=== PATIENT | female | born 1935 | race Caucasian/White ===

== ENCOUNTER 2022-08-17 17:02 | Emergency (ER) | payer MEDICARE, SELFPAY ==
[2022-08-17 17:12] VITALS: BP 172/79; PULSE 85; RESP 16; TEMP 37; O2SAT 96; BMI 28.4
--- NOTE | 2022-08-17 17:29 | ECG_ITS ---
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
--- NOTE | 2022-08-17 17:30 | XR_ITS ---
The [address] [address] Patient Name: DOMINIC HARRIS MRN: [id number] date: 1935 Sex: F Assigned Patient Location: ER Current Patient Location: ED.MAIN Accession/Order Number: [id number] Exam Date: 08/17/2022 18:00 Report Date: 08/17/2022 18:59 At the request of: ARNAV AGUILAR Procedure: XR chest 2V EXAM: XR chest 2V HISTORY: bilateral leg swelling COMPARISON: None. TECHNIQUE: PA and lateral views FINDINGS: The heart is within normal in size. Atherosclerotic aorta without visible aneurysm. The lung galvan are well-expanded and clear. There is a right convexity scoliotic curve of the lower thoracic spine. Bony structures are otherwise unremarkable. IMPRESSION: Chronic changes. No acute cardiopulmonary process is otherwise identified. Electronically authenticated by: Christine MCDONNELL Date: 08/17/2022 18:59
--- NOTE | 2022-08-17 17:31 | ED_ITS ---
HPI - General Adult General Stated complaint: BILATERAL EDEMA Time Seen by Provider: 08/17/22 17:08 Source: patient and family Mode of arrival: Wheelchair Limitations: no limitations History of Present Illness HPI narrative: both legs are swollen Patient said that she only takes her Lasix as needed . She noticed that both of her legs became more swollen last week. She and her family told me that it was really bad on Wednesday - 08/15/22. She started taking her Lasix once daily instead of twice a week. Her leg swelling has decreased since taking the Lasix daily. No shortness of breath or chest pain. No other complaints. She denied having pain behind the knees or in the calves. Her PCP is Dr Bailey Related Data Allergies Allergy/AdvReac Type Severity Reaction Status Date / Time Penicillins AdvReac Verified 08/17/22 17:12 PFSH PFS Social History Smoking status: Never smoker Exam Narrative Exam Narrative: Nurses notes and vital signs reviewed and patient is not hypoxic. afebrile General: Well-appearing and in no apparent distress. Skin: Warm, dry, no pallor noted. No rash. Head: Normocephalic, atraumatic. Eye: Pupils are equal, round and EOMI. No scleral icterus. Ears, Nose, Mouth, and Throat: Oral mucosa is moist Cardiovascular: Regular Rate and Rhythm without murmur, gallop or rub. Respiratory: No accessory muscle use or respiratory distress. Lungs are clear to auscultation, no wheezing, rales or rhonchi Musculoskeletal: normal ROM, no calf or popliteal tenderness. Bilateral 1+ pitting lower extremity edema/swelling GI: Abdomen is soft, non-distended. Normal bowel sounds. No tenderness to palpation. No rebound, guarding, or rigidity noted. Neurological: A&O x4. No cranial nerve dysfunction observed. No truncal ataxia. Moves all extremities. Sensation intact. Psychiatric: Cooperative and interactive. Normal mood and affect. Constitutional Vital Signs - 24 hr 08/17/22 17:12 Temperature 98.6 F Pulse Rate [Monitor] 85 Respiratory Rate 16 Blood Pressure [Left Arm] 172/79 H Pulse Oximetry 96 Course Vital Signs Vital signs: Vital Signs Temperature 98.6 F 08/17/22 17:12 Pulse Rate 85 08/17/22 17:12 Respiratory Rate 16 08/17/22 17:12 Blood Pressure 172/79 H 08/17/22 17:12 Pulse Oximetry 96 08/17/22 17:12 Temperature 98.6 F 08/17/22 17:12 Pulse Rate 85 08/17/22 17:12 Respiratory Rate 16 08/17/22 17:12 Blood Pressure 172/79 H 08/17/22 17:12 Pulse Oximetry 96 08/17/22 17:12 Medical Decision Making MDM Narrative Medical decision making narrative: Patient was placed on phototypesetting equipment monitor and EKG obtained. Blood drawn and sent for evaluation. BNP and troponin normal. BUN and Cr slightly elevated. Unremarkable CBC. I do not have recent values for her BUn/Cr. Patient was improving after taking Lasix daily. She will be discharged home with instructions to continue to take her Lasix daily for a few more days and then see her PCP for follow up. Discussed keeping legs elevated while inactive. ED return if she worsens. Lab Data Lab results reviewed: Yes I reviewed the patient's lab results Labs: Lab Results 08/17/22 Range/Units 17:25 WBC 9.1 (4.0-11.0) 10^3/uL RBC 3.79 L (4.20-5.40) 10^6/uL Hgb 11.3 L (12.0-16.0) g/dL Hct 35.0 L (36.0-48.0) % MCV 92.3 (81.0-99.0) fL MCH 29.8 (26.7-34.0) pg MCHC 32.3 (29.9-35.2) g/dL RDW 15.0 (11.0-15.0) % Plt Count 210 (150-450) 10^3/uL MPV 9.8 (9.5-13.5) fL Neut % (Auto) 84.4 H (43.0-75.0) % Lymph % (Auto) 9.6 L (20.5-60.0) % [place] % (Auto) 4.4 (1.7-12.0) % Eos % (Auto) 0.2 L (0.9-7.0) % Baso % (Auto) 0.3 (0.2-2.0) % Neut # (Auto) 7.7 H (1.4-6.5) 10^3/uL Lymph # (Auto) 0.9 L (1.2-3.8) 10^3/uL [place] # (Auto) 0.4 (0.3-0.8) 10^3/uL Eos # (Auto) 0.0 (0.0-0.7) 10^3/uL Baso # (Auto) 0.0 (0.0-0.1) 10^3/uL Abs Immat Gran (auto) 0.10 H (0.00-0.03) 10^3/uL Imm/Tot Granulo (auto) 1.1 H (0.0-0.5) % Sodium 143 (136-145) mmol/L Potassium 4.1 (3.5-5.1) mmol/L Chloride 105 (98-107) mmol/L Carbon Dioxide 28.4 (21.0-32.0) mmol/L Anion Gap 13.7 BUN 47.0 H (7.0-18.0) mg/dL Creatinine 1.76 H (0.55-1.02) mg/dL Est GFR ( Amer) 33 L (>=60) Est GFR (Non-Af Amer) 27 L (>=60) BUN/Creatinine Ratio 26.7 Glucose 158 H (74-106) mg/dL Calcium 9.7 (8.5-10.1) mg/dL Total Bilirubin 0.3 (0.2-1.0) mg/dL AST 25 (15-37) U/L ALT 54 (14-59) U/L Alkaline Phosphatase 66 (46-116) U/L Troponin I High Sens 15.6 (4.0-51.3) pg/mL NT-Pro-B Natriuret Pep 267.0 (<=1800.0) pg/mL Total Protein 7.0 (6.4-8.2) g/dL Albumin 3.6 (3.4-5.0) g/dL Globulin 3.4 g/dL Albumin/Globulin Ratio 1.1 ECG Data Attestation: ?I have reviewed the pertinent ECG results. Interpretation: EKG interpretation: Emergency Department physician interpretation. Normal sinus rhythm at 77bpm. Normal axis, normal intervals and no ST segment elevation or depression. Normal EKG. Discharge Plan Discharge Clinical Impression: Renal disease, Edema, peripheral Patient Disposition: Home, Self-Care Time of Disposition Decision: 18:50 Instructions: Edema (ED) Stand Alone Forms: Portal Instructions Referrals: DIPTI BAILEY [Primary Care Provider] - 1 week
[2022-08-17 18:04] LABS: Basophils Percent Auto 0.3 % (0.2-2.0); Eosinophils Percent Auto 0.2 % (0.9-7.0); Hemoglobin 11.3 g/dL (12.0-16.0); Immature Granulocytes Pct Auto 1.1 % (0.0-0.5); Lymphocytes Absolute Auto 0.9 10^3/uL (1.2-3.8); Lymphocytes Percent Auto 9.6 % (20.5-60.0); Mean Corpuscular HGB Conc 32.3 g/dL (29.9-35.2); Mean Corpuscular Hemoglobin 29.8 pg (26.7-34.0); Mean Corpuscular Volume 92.3 fL (81.0-99.0); Mean Platelet Volume 9.8 fL (9.5-13.5); Monocytes Absolute Auto 0.4 10^3/uL (0.3-0.8); Monocytes Percent Auto 4.4 % (1.7-12.0); Neutrophils Absolute Auto 7.7 10^3/uL (1.4-6.5); Neutrophils Percent Auto 84.4 % (43.0-75.0); Platelet Count 210 10^3/uL (150-450); Red Blood Count 3.79 10^6/uL (4.20-5.40); White Blood Count 9.1 10^3/uL (4.0-11.0)
[2022-08-17 18:22] LABS: Alanine Aminotransferase 54 U/L (14-59); Albumin Globulin Ratio 1.1; Albumin Level 3.6 g/dL (3.4-5.0); Alkaline Phosphatase 66 U/L (46-116); Anion Gap 13.7; Aspartate Amino Transferase 25 U/L (15-37); BUN Creatinine Ratio 26.7; Bilirubin Total 0.3 mg/dL (0.2-1.0); Calcium 9.7 mg/dL (8.5-10.1); Carbon Dioxide 28.4 mmol/L (21.0-32.0); Chloride 105 mmol/L (98-107); Estimated GFR (African America 33 (>=60); Estimated GFR (Non-African Ame 27 (>=60); Globulin 3.4 g/dL; Glucose 158 mg/dL (74-106); Potassium 4.1 mmol/L (3.5-5.1); Sodium 143 mmol/L (136-145); Troponin I High Sensitivity 15.6 pg/mL (4.0-51.3)
== END 2022-08-17 19:26 | disposition home or self-care (01) ==
PROVIDERS: Emergency Provider Emergency Medicine; PCP Internal Medicine
DX: R60.9 Edema, unspecified (principal); N28.9 Disorder of kidney and ureter, unspecified; Z79.899 Other long term (current) drug therapy
CPT/HCPCS: 36415; 71046; 80053; 83880; 84484; 85025; 93005; 99285

== ENCOUNTER 2023-12-02 10:24 | Observation (INO) | payer MEDICARE, SELFPAY ==
[2023-12-02] VITALS (26 sets, daily range): BP systolic 122–140; BP diastolic 71–97; PULSE 108–138; TEMP 36.5–36.6; O2SAT 90–100; BMI 28.5; BMI 29.8
--- NOTE | 2023-12-02 10:43 | ECG_ITS ---
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
--- NOTE | 2023-12-02 10:44 | ED_ITS ---
HPI HPI - General Adult General Chief complaint: Shortness of Breath/Dyspnea Stated complaint: HIGH HEART RATE, CLINIC REFERRAL Time Seen by Provider: 12/02/23 10:32 History of Present Illness HPI narrative: 88-year-old female presents for fast heart rate. She does not have the sense that her heart rate is fast. She was supposed to have an outpatient echo today but her heart rate was noted to be fast so she was sent here. She does not have chest pain or palpitations or dizziness. She is no more short of breath than typical. She states when she checks her blood pressure at home she gets a reading on her heart rate and it has been in the 140 range for about 6 months. Related Data Home Medications ?Medication ?Instructions ?Recorded ?Confirmed allopurinol 300 mg tablet 300 mg PO DAILY 12/02/23 12/02/23 amlodipine 5 mg tablet 5 mg PO DAILY 12/02/23 12/02/23 aspirin 81 mg chewable tablet 1 tab PO DAILY 12/02/23 12/02/23 furosemide 20 mg tablet 20 mg PO DAILY 12/02/23 12/02/23 latanoprost 0.005 % eye drops 1 drp ophthalmic (eye) BID 12/02/23 12/02/23 lisinopril 20 mg tablet 20 mg PO DAILY 12/02/23 12/02/23 prednisone 2.5 mg tablet 2.5 mg PO DAILY 12/02/23 12/02/23 Allergies Allergy/AdvReac Type Severity Reaction Status Date / Time Penicillins AdvReac Hives Verified 12/02/23 10:45 Opioid HPI Opioid Management Most Recent Opioid Data: Last Pain Scale 0 12/02/23 10:46 Last ED Pain Assessment 12/02/23 10:46 PFSH PFSH Medical History (Updated 12/02/23 @ 11:51 by Harjeet Thakkar MD) Hx of chronic kidney disease ?Z87.448 - Personal history of other diseases of urinary system (ICD-10) Hypertension ?I10 - Essential (primary) hypertension (ICD-10) Diabetes mellitus ?E11.9 - Type 2 diabetes mellitus without complications (ICD-10) Social History Smoking status: Never smoker Little interest or pleasure in doing things: not at all Feeling down, depressed, or hopeless: not at all Exam Constitutional Vital Signs, click to edit/add: Last Vital Signs Temp 97.8 F 12/02/23 11:00 Pulse 137 H 12/02/23 10:40 Resp 20 12/02/23 10:40 BP 131/97 H 12/02/23 10:40 Pulse Ox 99 12/02/23 10:46 O2 Del Method Nasal Cannula 12/02/23 10:46 Course Vital Signs Vital signs: Vital Signs Pulse Rate 137 H 12/02/23 10:40 Respiratory Rate 20 12/02/23 10:40 Blood Pressure 131/97 H 12/02/23 10:40 Pulse Oximetry 99 12/02/23 10:40 Oxygen Delivery Method Room Air 12/02/23 10:40 Temperature 97.8 F 12/02/23 11:00 Pulse Rate 137 H 12/02/23 10:40 Respiratory Rate 20 12/02/23 10:40 Blood Pressure 131/97 H 12/02/23 10:40 Pulse Oximetry 99 12/02/23 10:46 Oxygen Delivery Method Nasal Cannula 12/02/23 10:46 Medical Decision Making MDM Narrative Medical decision making narrative: The patient is found to have an elevated heart rate. My clinical impression is that this is sinus tachycardia. I do not believe that it is atrial flutter or atrial fibrillation. Lab work indicates some renal insufficiency which appears to be somewhat chronic. D-dimer is also elevated but her GFR is only 21 so we are unable to do CTA to rule out PE. She may require VQ scan. She is being admitted for further workup. Differential Diagnosis Differential Diagnosis: Sinus tachycardia, atrial fibrillation, atrial flutter, dehydration, anemia Lab Data Lab results reviewed: Yes I reviewed the patient's lab results Labs: Lab Results 12/02/23 Range/Units 10:35 WBC 9.9 (4.0-11.0) 10^3/uL RBC 3.81 L (4.20-5.40) 10^6/uL Hgb 11.1 L (12.0-16.0) g/dL Hct 34.6 L (36.0-48.0) % MCV 90.8 (81.0-99.0) fL MCH 29.1 (26.7-34.0) pg MCHC 32.1 (29.9-35.2) g/dL RDW 14.7 (11.0-15.0) % Plt Count 256 (150-450) 10^3/uL MPV 10.0 (9.5-13.5) fL Neut % (Auto) 78.7 H (43.0-75.0) % Lymph % (Auto) 11.6 L (20.5-60.0) % [place] % (Auto) 7.1 (1.7-12.0) % Eos % (Auto) 1.5 (0.9-7.0) % Baso % (Auto) 0.7 (0.2-2.0) % Neut # (Auto) 7.8 H (1.4-6.5) 10^3/uL Lymph # (Auto) 1.2 (1.2-3.8) 10^3/uL [place] # (Auto) 0.7 (0.3-0.8) 10^3/uL Eos # (Auto) 0.2 (0.0-0.7) 10^3/uL Baso # (Auto) 0.1 (0.0-0.1) 10^3/uL Abs Immat Gran (auto) 0.04 H (0.00-0.03) 10^3/uL Imm/Tot Granulo (auto) 0.4 (0.0-0.5) % D-Dimer 2.21 H* (<=0.59) mg/L FEU Sodium 136 (136-145) mmol/L Potassium 3.5 (3.5-5.1) mmol/L Chloride 100 (98-107) mmol/L Carbon Dioxide 24.0 (21.0-32.0) mmol/L Anion Gap 15.5 BUN 47.0 H (7.0-18.0) mg/dL Creatinine 2.24 H (0.55-1.02) mg/dL Est GFR ( Amer) 25 L (>=60 mL/min/1.73m^2) Est GFR (Non-Af Amer) 21 L (>=60 mL/min/1.73m^2) BUN/Creatinine Ratio 21.0 Glucose 214 H (74-106) mg/dL Calcium 10.2 H (8.5-10.1) mg/dL Troponin I High Sens 22.9 (4.0-51.3) pg/mL Imaging Data Chest x-ray: Radiologist's impression: ITS Impressions Chest X-Ray 12/02/23 11:15 IMPRESSION: No acute cardiopulmonary process Electronically authenticated by: GLORIA VIRGEN Date: 12/02/2023 11:33 ECG Data Attestation: I personally reviewed and interpreted this ECG as follows: (EKG on my interpretation shows sinus tachycardia with a rate of 136) Discharge Plan Discharge Chief Complaint: Shortness of Breath/Dyspnea Clinical Impression: Sinus tachycardia Patient Disposition: Admitted as Observation Time of Disposition Decision: 11:51 Condition: Good
[2023-12-02 10:51] LABS: Basophils Absolute Auto 0.1 10^3/uL (0.0-0.1); Basophils Percent Auto 0.7 % (0.2-2.0); Eosinophils Absolute Auto 0.2 10^3/uL (0.0-0.7); Eosinophils Percent Auto 1.5 % (0.9-7.0); Hematocrit 34.6 % (36.0-48.0); Hemoglobin 11.1 g/dL (12.0-16.0); Immature Granulocytes Abs Auto 0.04 10^3/uL (0.00-0.03); Immature Granulocytes Pct Auto 0.4 % (0.0-0.5); Lymphocytes Absolute Auto 1.2 10^3/uL (1.2-3.8); Lymphocytes Percent Auto 11.6 % (20.5-60.0); Mean Corpuscular HGB Conc 32.1 g/dL (29.9-35.2); Mean Corpuscular Hemoglobin 29.1 pg (26.7-34.0); Mean Corpuscular Volume 90.8 fL (81.0-99.0); Monocytes Absolute Auto 0.7 10^3/uL (0.3-0.8); Monocytes Percent Auto 7.1 % (1.7-12.0); Neutrophils Absolute Auto 7.8 10^3/uL (1.4-6.5); Neutrophils Percent Auto 78.7 % (43.0-75.0); Platelet Count 256 10^3/uL (150-450); Red Blood Count 3.81 10^6/uL (4.20-5.40); Red Cell Distribution Width 14.7 % (11.0-15.0); White Blood Count 9.9 10^3/uL (4.0-11.0)
[2023-12-02 11:08] LABS: Anion Gap 15.5; Calcium 10.2 mg/dL (8.5-10.1); Chloride 100 mmol/L (98-107); Estimated GFR (African America 25 (>=60 mL/min/1.73m^2); Estimated GFR (Non-African Ame 21 (>=60 mL/min/1.73m^2); Glucose 214 mg/dL (74-106); Potassium 3.5 mmol/L (3.5-5.1); Sodium 136 mmol/L (136-145); Troponin I High Sensitivity 22.9 pg/mL (4.0-51.3)
--- NOTE | 2023-12-02 11:15 | XR_ITS ---
The [address] [address] Patient Name: DOMINIC HARRIS MRN: [id number] date: 1935 Sex: F Assigned Patient Location: CARD Current Patient Location: ER Accession/Order Number: [id number] Exam Date: 12/02/2023 11:11 Report Date: 12/02/2023 11:33 At the request of: AVIS DOWLING Procedure: XR chest 1V EXAMINATION: XR chest 1V HISTORY: Tachycardia COMPARISON: 08/17/2022 TECHNIQUE: AP portable FINDINGS: LUNGS: No significant pulmonary parenchymal abnormalities. VASCULATURE: No increased pulmonary vasculature. PLEURA: No pneumothorax, effusion, or pleural thickening. CARDIAC: No cardiomegaly or cardiac silhouette abnormality. MEDIASTINUM: No visible mass or adenopathy. Atherosclerosis BONES: No fracture or visible bone lesion. Dextrocurvature OTHER: Negative. XR/XR chest 1V IMPRESSION: No acute cardiopulmonary process Electronically authenticated by: GLORIA VIRGEN Date: 12/02/2023 11:33
[2023-12-02 11:26] LABS: D Dimer 2.21 mg/L FEU (<=0.59)
--- NOTE | 2023-12-02 11:45 | NM_ITS ---
The [address] [address] Patient Name: DOMINIC HARRIS MRN: [id number] date: 1935 Sex: F Assigned Patient Location: MS Current Patient Location: MS Accession/Order Number: [id number] Exam Date: 12/02/2023 14:00 Report Date: 12/02/2023 15:57 At the request of: SHAIKH PATY Procedure: NM pul vent and perfuse EXAMINATION: NM pul vent and perfuse HISTORY: elevated d dimer, r/o PE COMPARISON: Plain x-ray 12/02/2023 TECHNIQUE: After obtaining the patient's consent, a ventilation/perfusion scan was obtained in the usual manner. 8 mCi technetium 99m macroaggregated albumin for the perfusion. 26.2 mCi technetium 99m DTPA inhaled aerosol FINDINGS: VENTILATION: Normal, no significant defects. PERFUSION: Normal, no significant defect. V/Q MISMATCH: None significant. NM/NM pul vent and perfuse IMPRESSION: Low probability for pulmonary embolus Electronically authenticated by: GLORIA VIRGEN Date: 12/02/2023 15:57
[2023-12-02 12:11] LABS: TSH W/ REFLEX FT4 5.105 uIU/mL (0.358-3.740)
--- NOTE | 2023-12-02 12:16 | PM.HP ---
HPI H&P: HPI History of Present Illness Chief complaint: HIGH HEART RATE, CLINIC REFERRAL Narrative: 88-year-old female was scheduled for outpatient echocardiogram and was sent to ER after she was noted to have heart rate in the 130s. Patient reports dyspnea on minimal exertion that is ongoing for about a month. She also has bilateral lower extremity edema that according to her is ongoing for 6 months. She denies cough, fever, orthopnea or paroxysmal nocturnal dyspnea. She denies prior history of congestive heart failure but was told that she had rheumatic fever as a child and that she has a heart murmur because of it. She does not recall ever having an echocardiogram but is unsure about it. Upon evaluation in ER, her heart rate is persistently in the 130 range. It appears to be sinus tachycardia. Patient told the ER provider that when she checks her blood pressure, she noticed that she had another number right besides her blood pressure that was always in the 130. It seems like this has been going on for a few months. Patient is currently comfortable at rest and is offering no complaints except for dyspnea on exertion and lower extremity edema. Opioid HPI Opioid Management Most Recent Pain and Opioid Data: Last Pain Scale 0 12/02/23 10:46 Last ED Pain Assessment 12/02/23 10:46 Review of Systems ROS Status of ROS 10 or more systems reviewed and unremarkable except as noted in history and below [facility] Medical History (Updated 12/02/23 @ 12:20 by Shaikh Alen MD) Type 2 diabetes mellitus ?E11.9 - Type 2 diabetes mellitus without complications (ICD-10) CKD stage 4 due to type 2 diabetes mellitus ?E11.22 - Type 2 diabetes mellitus with diabetic chronic kidney disease (ICD-10) ?N18.4 - Chronic kidney disease, stage 4 (severe) (ICD-10) Hx of chronic kidney disease ?Z87.448 - Personal history of other diseases of urinary system (ICD-10) Hypertension ?I10 - Essential (primary) hypertension (ICD-10) Diabetes mellitus ?E11.9 - Type 2 diabetes mellitus without complications (ICD-10) Social History Smoking status: Never smoker Little interest or pleasure in doing things: not at all Feeling down, depressed, or hopeless: not at all Meds Home Medications and Allergies Home Medications ?Medication ?Instructions ?Recorded ?Confirmed ?Type allopurinol 300 mg tablet 300 mg PO DAILY 12/02/23 12/02/23 History amlodipine 5 mg tablet 5 mg PO DAILY 12/02/23 12/02/23 History aspirin 81 mg chewable tablet 1 tab PO DAILY 12/02/23 12/02/23 History furosemide 20 mg tablet 20 mg PO DAILY 12/02/23 12/02/23 History latanoprost 0.005 % eye drops 1 drp ophthalmic (eye) BID 12/02/23 12/02/23 History lisinopril 20 mg tablet 20 mg PO DAILY 12/02/23 12/02/23 History metformin 1,000 mg tablet 1,000 mg PO .qd 12/02/23 12/02/23 History prednisone 2.5 mg tablet 2.5 mg PO DAILY 12/02/23 12/02/23 History Allergies Allergy/AdvReac Type Severity Reaction Status Date / Time Penicillins AdvReac Hives Verified 12/02/23 10:45 Exam Constitutional Vital Signs, click to edit/add: Last Vital Signs Temp 97.8 F 12/02/23 11:00 Pulse 137 H 12/02/23 10:40 Resp 20 12/02/23 10:40 BP 131/97 H 12/02/23 10:40 Pulse Ox 99 12/02/23 10:46 O2 Del Method Nasal Cannula 12/02/23 10:46 Documenting provider has reviewed patient's vital signs: yes Common normals: no apparent distress and oriented x3 General appearance: cooperative [facility] Common normals: normocephalic and head/scalp atraumatic Head and scalp: normocephalic and atraumatic Eye Common normals: conjunctivae normal and no scleral icterus Conjunctiva: conjunctiva(e) normal Respiratory Common normals: normal respiratory effort and clear to auscultation bilaterally Effort & inspection: able to speak in complete sentences Auscultation: clear to auscultation bilaterally and diminished lung sounds bilateral in the lower lung galvan Cardio Common normals: regular rhythm, S1 normal heart sound and S2 normal heart sound Rate: tachycardic Heart sounds: S1 normal and S2 normal GI Common normals: Normal to inspection, nondistended, normoactive bowel sounds present, soft to palpation, non-tender and no hepatosplenomegaly Palpation: soft and no hepatosplenomegaly Extremity Common normals: no clubbing, cyanosis or edema General: edema (+2 LE edema) Neuro Common normals: oriented x3, moves all extremities and no focal motor deficits Psych Common normals: mental status grossly normal, denies hallucinations, denies homicidal ideation and denies suicidal ideation Results Labs Labs: Short CBC 12/02/23 Range/Units 10:35 WBC 9.9 (4.0-11.0) 10^3/uL Hgb 11.1 L (12.0-16.0) g/dL Hct 34.6 L (36.0-48.0) % Plt Count 256 (150-450) 10^3/uL BMP 12/02/23 10:35 Sodium 136 Potassium 3.5 Chloride 100 Carbon Dioxide 24.0 BUN 47.0 H Creatinine 2.24 H Glucose 214 H Calcium 10.2 H Assessment and Plan Assessment and Plan (1) Acute on chronic diastolic (congestive) heart failure: Assessment and Plan: Suspected diastolic heart failure. Started patient on IV Lasix 40 twice daily. Monitor intake, output, daily weights. Echocardiogram ordered to assess cardiac structure. (2) Sinus tachycardia: Assessment and Plan: Check TSH. Echocardiogram ordered to assess cardiac structure. Appears to be sinus tachycardia. Added Lopressor 50 twice daily. Monitor on telemetry. (3) BRANHAM (dyspnea on exertion): Assessment and Plan: Chronic on exertion likely because of acute on chronic diastolic heart failure. Started on IV Lasix 40 twice daily. Echocardiogram pending. Elevated D-dimer-VQ scan ordered as unable to perform CTA because of her kidney function (4) Elevated d-dimer: Assessment and Plan: Elevated D-dimer ordered for sinus tachycardia and dyspnea on exertion unable to do CTA. VQ scan ordered to rule out PE. (5) CKD stage 4 due to type 2 diabetes mellitus: Assessment and Plan: Renal function more or less at baseline. Monitor closely while on diuretic. (6) Type 2 diabetes mellitus: Assessment and Plan: On metformin as outpatient. Sliding scale insulin while inpatient. Qualifiers: Diabetes mellitus terminal gauger supervisor insulin use: without halfway use Diabetes mellitus complication status: with kidney complications Diabetes mellitus complication detail: with chronic kidney disease Chronic kidney disease stage: stage 4 (severe) Qualified Code(s): E11.22 - Type 2 diabetes mellitus with diabetic chronic kidney disease; N18.4 - Chronic kidney disease, stage 4 (severe) (7) Hypertension: Assessment and Plan: Hold. Continue with amlodipine. On IV Lasix. Added Lopressor 50 twice daily. Qualifiers: Hypertension type: primary hypertension Qualified Code(s): I10 - Essential (primary) hypertension
[2023-12-02 12:33] LABS: Free T4 0.96 ng/dL (0.76-1.46)
[2023-12-02] MEDS: HEPARIN SODIUM (PORCINE) 5,000 UNIT/ML VIAL 5000 UNIT SUBQ ×2 (13:45→21:02)
--- NOTE | 2023-12-02 14:45 | SWNOTE1 ---
SW attempted to see pt, but she was not in room. Pt's son was in room. SW spoke to nurse and pt was down getting a test done. SW let pt's son know. SW to assess later today or tomorrow morning.
--- NOTE | 2023-12-02 15:16 | SWNOTE1 ---
SW met with pt and pt's son in room to discuss dc needs. Pt lives at home alone. Pt has 2 steps to get in to the home, other than that it is a 1 story home. Pt has a cane that she uses when outside and has a walker if she ever needs it. Per patient, her home is small and she furniture walks if needed, but mostly independent. Pt stated she is feeling fine, just more short of breath when ambulating. At this time pt denies any discharge needs. SW to follow as needed.
--- NOTE | 2023-12-02 15:18 | SWNOTE1 ---
Medicare Outpatient Observation Notice reviewed and discussed with patient. Pt. verbalized understanding and signed the form. Original given to patient and copy placed in patient?s chart.
[2023-12-02] MEDS: METOPROLOL TARTRATE 5 MG/5 ML VIAL IVP (15:19)
[2023-12-02 16:16] LABS: Glucometer 211 mg/dL (74-106)
[2023-12-02] MEDS: INSULIN ASPART 300 UNIT/3 ML PEN SUBQ (16:44)
[2023-12-02] MEDS: FUROSEMIDE 40 MG/4 ML VIAL IVP (19:35)
[2023-12-02] MEDS: LATANOPROST 0.005% 2.5 ML BOTTLE 1 DROP OP (21:02)
[2023-12-02] MEDS: METOPROLOL TARTRATE 50 MG TABLET PO (21:02)
[2023-12-02 21:22] LABS: Glucometer 130 mg/dL (74-106)
[2023-12-03] VITALS (11 sets, daily range): BP systolic 107–109; BP diastolic 69; PULSE 66–132; TEMP 36.4–36.5; O2SAT 90–94
[2023-12-03] MEDS: HEPARIN SODIUM (PORCINE) 5,000 UNIT/ML VIAL 5000 UNIT SUBQ (05:27)
[2023-12-03 06:40] LABS: Basophils Absolute Auto 0.1 10^3/uL (0.0-0.1); Eosinophils Absolute Auto 0.2 10^3/uL (0.0-0.7); Eosinophils Percent Auto 2.9 % (0.9-7.0); Hematocrit 30.2 % (36.0-48.0); Hemoglobin 9.5 g/dL (12.0-16.0); Immature Granulocytes Abs Auto 0.03 10^3/uL (0.00-0.03); Immature Granulocytes Pct Auto 0.4 % (0.0-0.5); Lymphocytes Absolute Auto 1.4 10^3/uL (1.2-3.8); Lymphocytes Percent Auto 18.9 % (20.5-60.0); Mean Corpuscular HGB Conc 31.5 g/dL (29.9-35.2); Mean Corpuscular Hemoglobin 28.5 pg (26.7-34.0); Mean Corpuscular Volume 90.7 fL (81.0-99.0); Mean Platelet Volume 9.8 fL (9.5-13.5); Monocytes Absolute Auto 0.6 10^3/uL (0.3-0.8); Monocytes Percent Auto 8.4 % (1.7-12.0); Neutrophils Percent Auto 68.4 % (43.0-75.0); Platelet Count 209 10^3/uL (150-450); Red Blood Count 3.33 10^6/uL (4.20-5.40); Red Cell Distribution Width 14.7 % (11.0-15.0); White Blood Count 7.4 10^3/uL (4.0-11.0)
[2023-12-03 06:55] LABS: Alanine Aminotransferase 14 U/L (14-59); Albumin Globulin Ratio 0.9; Albumin Level 2.8 g/dL (3.4-5.0); Alkaline Phosphatase 73 U/L (46-116); Anion Gap 13.3; Aspartate Amino Transferase 15 U/L (15-37); BUN Creatinine Ratio 21.9; Bilirubin Total 0.4 mg/dL (0.2-1.0); Calcium 9.6 mg/dL (8.5-10.1); Carbon Dioxide 24.5 mmol/L (21.0-32.0); Chloride 102 mmol/L (98-107); Estimated GFR (African America 26 (>=60 mL/min/1.73m^2); Estimated GFR (Non-African Ame 21 (>=60 mL/min/1.73m^2); Globulin 3.2 g/dL; Glucose 156 mg/dL (74-106); Potassium 3.8 mmol/L (3.5-5.1); Sodium 136 mmol/L (136-145)
--- NOTE | 2023-12-03 07:28 | CA_ITS ---
Patient Name: DOMINIC HARRIS MR#: [id number] : 1935 Exam Date: 12/03/2023 Ordering Doctor: SHAIKH Elba NEWMAN . ECHOCARDIOGRAM REPORT PROCEDURE: CA ECHO DOPPLER COMPLETE INDICATIONS: Sinus tachycardia, diabetes, hypertension, chronic kidney disease COMPARISON: None. DESCRIPTION: COMPLETE ECHOCARDIOGRAM Real-time transthoracic echocardiography with 2D, M-mode, spectral and color flow Doppler performed. QUALITY: Technical quality was good. LEFT VENTRICLE: Normal chamber size. Normal left ventricular wall thickness. There is diffuse global hypokinesis with abnormal septal motion likely related to bundle branch block. Systolic function is severely reduced. LV EF: Severely reduced left ventricular ejection fraction, (20-25%). DIASTOLIC: Not adequately assessed due to heart rhythm [likely atrial flutter with variable and rapid ventricular response]. ATRIAL SEPTUM: LEFT ATRIUM: Severe dilatation. RIGHT ATRIUM: Moderate dilatation. RIGHT VENTRICLE: Mild dilatation. Reduced right ventricular systolic function. TRICUSPID VALVE: Normal mobility and thickness. No stenosis with mild to moderate regurgitation. Doppler studies reveal moderately (45-60) elevated right sided pressures. RVSP 45 mmHg MITRAL VALVE: Normal mobility and thickness. No evidence of mitral valve stenosis. There is no mitral annular calcification. Moderate mitral regurgitation. AORTIC VALVE: Normal trileaflet appearance. No visible sclerosis. Normal leaflet mobility. No evidence of aortic valve stenosis. No aortic regurgitation. AORTIC ROOT: Normal diameter and appearance. PULMONIC VALVE: Normal thickness and mobility. No stenosis. Trivial regurgitation. PERICARDIUM: No evidence of pericardial effusion. IVC: IVC is dilated (2.4 cm) with no collapse. PLEURA: CONCLUSION: 1. Left ventricle is normal in size and exhibits severely reduced systolic function. Estimated LVEF is 20 to 25%. There is diffuse global hypokinesis. 2. Mildly dilated right ventricle with reduced systolic function. 3. Moderate to severe biatrial dilatation. 4. Moderate mitral regurgitation. 5. Mild to moderate tricuspid regurgitation. 6. Moderately elevated right-sided pressures. 7. The patient appears to be in atrial flutter with variable and rapid ventricular response. Adult Echocardiography Procedure Report Left Ventricle LVEDD (3.7 - 5.6 cm): 4.09 cm LVESD (2.2 - 4.0 cm): 3.36 cm LVIVS thickness (0.6 - 1.2 cm): 1.03 cm LVPW thickness (0.5 - 1.0 cm): 0.86 cm LVOT Max Gradient: 1.52 mm[Hg], 1.46 mm[Hg], 1.94 mm[Hg] LVOT Area (cm2): 0.64 m/s Peak Velocity (LVOT): 0.62 m/s, 0.60 m/s, 0.70 m/s Mean Velocity (LVOT): 0.42 m/s LVOT Diameter 1.72 cm Left Atrium LA Volume Index (2D A2C): 51.21 ml/m2 Mitral Valve Mitral Valve E-Wave Peak Velocity: 1.11 m/s Right Ventricle Aorta AO Root Diam: 2.73 cm Aortic Valve AoV Area (Peak Steve): 1.47 cm2, 1.21 cm2, 1.58 cm2, 1.69 cm2 AoV Area (VTI): 1.88 cm2, 1.17 cm2, 4.24 cm2, 1.77 cm2 Peak Velocity(Antegrade Flow): 1.19 m/s, 0.89 m/s, 0.96 m/s Peak Gradient(Antegrade Flow): 5.67 mm[Hg], 3.17 mm[Hg], 3.69 mm[Hg] Mean Velocity(Antegrade Flow): 0.89 m/s, 0.61 m/s, 0.73 m/s Mean Gradient(Antegrade Flow): 3.47 mm[Hg], 1.73 mm[Hg], 2.35 mm[Hg] Velocity Time Integral: 24.89 cm, 8.15 cm, 17.07 cm Tricuspid Valve Peak Velocity (Regurgitant Flow): 2.42 m/s, 2.72 m/s, 2.68 m/s Pulmonic Valve Peak Velocity: 0.60 m/s Peak Gradient: 1.31 mm[Hg], 1.58 mm[Hg] Right Atrium Right Atrium Systolic Pressure: 44.40 ml, 42.01 ml, 46.79 ml Dictated by: Reji Aguirre M.D. on 12/03/2023 at 16:05 Approved by: Reji Aguirre M.D. on 12/03/2023 at 16:10
[2023-12-03] MEDS: AMLODIPINE BESYLATE 5 MG TABLET PO (08:05)
[2023-12-03] MEDS: ALLOPURINOL 300 MG TABLET PO (08:05)
[2023-12-03] MEDS: METOPROLOL TARTRATE 50 MG TABLET PO (08:05)
[2023-12-03] MEDS: ASPIRIN 81 MG TAB.CHEW PO (08:05)
[2023-12-03] MEDS: PREDNISONE 5 MG TABLET 2.5 MG PO (08:05)
[2023-12-03] MEDS: FUROSEMIDE 40 MG/4 ML VIAL IVP (08:05)
[2023-12-03] MEDS: LATANOPROST 0.005% 2.5 ML BOTTLE 1 DROP OP (08:06)
--- NOTE | 2023-12-03 09:46 | CM.NOTE ---
Rounds made with Dr. Lowry, discussed with pt about discharge to home today and f/u with PCP in one week. No discharge needs identified.
[2023-12-03] MEDS: INSULIN ASPART 300 UNIT/3 ML PEN SUBQ (11:42)
[2023-12-03 11:43] LABS: Glucometer 176 mg/dL (74-106)
--- NOTE | 2023-12-03 11:54 | ECG_ITS ---
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
--- NOTE | 2023-12-03 11:54 | PM.DS1 ---
DS: Providers Provider Date of admission: 12/02/23 13:12 Primary care physician: DIPTI BAILEY Admitting clinician: Shaikh Alen Attending physician on admission: Shaikh Alen Attending physician on discharge: Shaikh Alen Discharging clinician: Shaikh Alen Anticipated date of discharge: 12/03/23 DS: Diagnosis Discharge Diagnosis (1) Acute on chronic diastolic (congestive) heart failure: Assessment and plan: Treated with IV lasix. Appears euvolemic. ECHO - normal LVEF, no sig abnormality noted. Official report by Cardiology is pending. (2) Atrial flutter with rapid ventricular response: Assessment and plan: Initially presented with but upon repeat EKG, patient seems to be in Aflutter. HR reasonably controlled with addition of PO lopressor. Will increase to 100 q12 and discharge on the increased dose. CHADVASC 2 score is 5, will need DOAC for stroke px. HADBLED score of 2. Discussed risk vs benefit. No prior hx of bleeding, no recurrent falls and patient is in very good physical shap for her age. Will d/c on Eliquis 2.5 (Cr >1.5, age>80) (3) Sinus tachycardia: Assessment and plan: Intermittent ST with new onset Aflutter. WIll d/c on oral lopressor along with eliquis. (4) BRANHAM (dyspnea on exertion): Assessment and plan: improved with Diuresis. Could be due to underlying aflutter with RVR. Will need outpaitent w/u with EP for possible ablation. (5) Elevated d-dimer: Assessment and plan: likely due to old age/CKD. Low probability of PE on VQ scan. (6) CKD stage 4 due to type 2 diabetes mellitus: Assessment and plan: Monitor renal fx. (7) Type 2 diabetes mellitus: Assessment and plan: Not on metformin - taken off a week ago. Will dc on oral glipizide. Will benefit from SGLT2 inhibitor given her hx of CKD, CHF. But not prescribing due to cost concern. Defer to PCP. Qualifiers: Chronic kidney disease stage: stage 4 (severe) Diabetes mellitus complication detail: with chronic kidney disease Diabetes mellitus complication status: with kidney complications Diabetes mellitus long term care phlebotomist insulin use: without long term care phlebotomist use Qualified Code(s): E11.22 - Type 2 diabetes mellitus with diabetic chronic kidney disease; N18.4 - Chronic kidney disease, stage 4 (severe) (8) Hypertension: Assessment and plan: d/C Amlodipine. Added lopressor 100 q12, C/w lisinopril due to CKD and CHF. Qualifiers: Hypertension type: primary hypertension Qualified Code(s): I10 - Essential (primary) hypertension DS: Summary Hospital Course Hospital Course: 88-year-old female was scheduled for outpatient echocardiogram and was sent to ER after she was noted to have heart rate in the 130. Patient reports dyspnea on minimal exertion that is ongoing for about a month. She also has bilateral lower extremity edema that according to her is ongoing for 6 months. She denies cough, fever, orthopnea or paroxysmal nocturnal dyspnea. Upon evaluation in ER, her heart rate is persistently in the 130 range. It appears to be sinus tachycardia. Patient told the ER provider that when she checks her blood pressure, she noticed that she had another number right besides her blood pressure that was always in the 130. It seems like this has been going on for a few months. Patient was admitted for acute on chronic diastolic HF, started on IV lasix and PO lopressor. Her HR improved with addition of Lopressor. We repeated EKG and its c/w Aflutter with RVR. Patient had an echo during admission that did not reveal any sig abnormality. Patient is medically stable for discharge. She will need po lopressor 100 q12 and Eliquis 2.5 q12 for stroke px. Patient will need f/u with PCP in one week. She was instructed to maintain log of BP and HR and f/u with PCP in one week. She was also instructed to return to ED if she has worsening SOB, HR persistently above 130. She will need outpatient f/u with Cardiology. Status at Discharge Functional status at discharge: independent ambulation Overall status at discharge: patient is back to baseline Time Spent with Patient Time attestation: Total time spent providing and/or coordinating discharge services: Time spent: greater than 30 minutes Exam Constitutional Vital Signs, click to edit/add: Last Vital Signs Temp 97.7 F 12/03/23 08:12 Pulse 111 H 12/03/23 09:58 Resp 18 12/03/23 08:12 BP 109/69 12/03/23 08:12 Pulse Ox 94 L 12/03/23 11:51 O2 Del Method Room Air 12/03/23 11:51 Documenting provider has reviewed patient's vital signs: yes Common normals: no apparent distress and oriented x3 General appearance: cooperative Respiratory Common normals: normal respiratory effort and clear to auscultation bilaterally Effort & inspection: able to speak in complete sentences Auscultation: clear to auscultation bilaterally Cardio Common normals: regular rhythm, S1 normal heart sound and S2 normal heart sound Rate: tachycardic Heart sounds: S1 normal and S2 normal Extremity Common normals: no clubbing, cyanosis or edema General: edema (trace pedal edema) Neuro Common normals: oriented x3, moves all extremities and no focal motor deficits Psych Common normals: mental status grossly normal, denies hallucinations, denies homicidal ideation and denies suicidal ideation DS: Data Data Completed and Pending Labs on day of discharge: Labs from last 24 hours 12/03/23 12/03/23 12/02/23 11:42 06:12 21:20 WBC 7.4 RBC 3.33 L Hgb 9.5 L Hct 30.2 L MCV 90.7 MCH 28.5 MCHC 31.5 RDW 14.7 Plt Count 209 MPV 9.8 Neut % (Auto) 68.4 Lymph % (Auto) 18.9 L [place] % (Auto) 8.4 Eos % (Auto) 2.9 Baso % (Auto) 1.0 Neut # (Auto) 5.0 Lymph # (Auto) 1.4 [place] # (Auto) 0.6 Eos # (Auto) 0.2 Baso # (Auto) 0.1 Abs Immat Gran (auto) 0.03 Imm/Tot Granulo (auto) 0.4 Sodium 136 Potassium 3.8 Chloride 102 Carbon Dioxide 24.5 Anion Gap 13.3 BUN 48.0 H Creatinine 2.19 H Est GFR ( Amer) 26 L Est GFR (Non-Af Amer) 21 L BUN/Creatinine Ratio 21.9 Glucose 156 H Calcium 9.6 Total Bilirubin 0.4 AST 15 ALT 14 Alkaline Phosphatase 73 Total Protein 6.0 L Albumin 2.8 L Globulin 3.2 Albumin/Globulin Ratio 0.9 Free T4 TSH & Free T4 Interp POC Glucose 176 H 130 H 12/02/23 12/02/23 16:10 10:35 WBC RBC Hgb Hct MCV MCH MCHC RDW Plt Count MPV Neut % (Auto) Lymph % (Auto) [place] % (Auto) Eos % (Auto) Baso % (Auto) Neut # (Auto) Lymph # (Auto) [place] # (Auto) Eos # (Auto) Baso # (Auto) Abs Immat Gran (auto) Imm/Tot Granulo (auto) Sodium Potassium Chloride Carbon Dioxide Anion Gap BUN Creatinine Est GFR ( Amer) Est GFR (Non-Af Amer) BUN/Creatinine Ratio Glucose Calcium Total Bilirubin AST ALT Alkaline Phosphatase Total Protein Albumin Globulin Albumin/Globulin Ratio Free T4 0.96 TSH & Free T4 Interp 5.105 H POC Glucose 211 H Discharge Plan Discharge Disposition: Home Health Service Condition: Good Discharge Medications: New glipizide 5 mg tablet extended release 24hr 5 mg PO DAILY Qty: 30 0RF Rx Instructions: use within 30 minutes of a meal metoprolol tartrate [Lopressor] 100 mg tablet 100 mg PO BID Qty: 60 0RF Eliquis 2.5 mg tablet 2.5 mg PO BID Qty: 60 0RF Continued allopurinol 300 mg tablet 300 mg PO DAILY aspirin 81 mg tablet,chewable 1 tab PO DAILY furosemide 20 mg tablet 20 mg PO DAILY latanoprost 0.005 % drops 1 drp OPHTHALMIC (EYE) BID lisinopril 20 mg tablet 20 mg PO DAILY prednisone 2.5 mg tablet 2.5 mg PO DAILY Discontinued amlodipine 5 mg tablet 5 mg PO DAILY Activity: increase activity as tolerated Diet: diabetic diet and low salt diet Print Language: [place] Forms: Portal Instructions Follow Up Appointments: Dr Montez Small, Dec 08, 2023 at 2:00pm [phone] F/u with Cardiology as outpatient for new onset Aflutter.
--- NOTE | 2023-12-03 14:32 | SWNOTE1 ---
SW spoke to pt and she is feeling better and has no concerns about discharge and does not feel she needs at services, voiced she is at her baseline.
--- NOTE | 2023-12-03 18:43 | PC.NURSE ---
1630 - [facility] cardiology called to inform filing writer that patient's EF was 20-25% per the acute care registered nurse that read the echocardiogram. Patient had already been discharged per the physician. Pilot Boat Captain called physician, Alen, to inform him of the the EF. Dr. Lowry stated that because the patient was not symptomatic and stable that he would call the primary care physician on Wednesday and discuss the results with PCP.
--- NOTE | 2023-12-06 14:32 | CM.DCFOLLOWU ---
1st attempt 12/06/23, no answer
--- NOTE | 2023-12-07 13:13 | CM.DCFOLLOWU ---
2nd attempt 12/07/23, no answer
== END 2023-12-03 15:53 | disposition home or self-care (01) ==
LOC: ER 12:16 → MS 13:24
PROVIDERS: Admitting Provider Internal Medicine; Emergency Provider Emergency Medicine; PCP Internal Medicine; Visit Provider Internal Medicine
DX: I13.0 Hypertensive heart and chronic kidney disease with heart failure and stage 1 through stage 4 chronic kidney disease, or unspecified chronic kidney disease (principal); I50.33 Acute on chronic diastolic (congestive) heart failure; I48.92 Unspecified atrial flutter; R00.0 Tachycardia, unspecified; R06.09 Other forms of dyspnea; N18.4 Chronic kidney disease, stage 4 (severe); E11.22 Type 2 diabetes mellitus with diabetic chronic kidney disease; R79.1 Abnormal coagulation profile; Z79.899 Other long term (current) drug therapy
CPT/HCPCS: 36415; 71045; 78582; 80048; 80053; 82948; 84439; 84443; 84484; 85025; 85378; 93005; 93306; 94761; 96372; 96374; 96375; 96376; 99285; A9540; A9567; G0378; J1644; J1940; J7512

== ENCOUNTER 2024-05-26 10:07 | Outpatient (REF) | payer MEDICARE, SELFPAY ==
--- OUTSIDE RECORDS SUMMARY | 2024-05-26 10:29 | XMS_ITS | CCD ---
Author Organization [facility] Care Team Providers Care Lamina Searcher Name Role Phone PHYSICIAN, DEFAULT Admitting Unavailable PHYSICIAN, DEFAULT Attending Unavailable REQUEST, NONE LISTED Attending Unavaila ble REQUEST, NONE LISTED Consulting Unavaila ble REQUEST, NONE LISTED Admitting Unavaila ble REQUEST, NONE LISTED Attending Unavaila ble REQUEST, NONE LISTED Consulting Unavaila ble REQUEST, NONE LISTED Admitting Unavaila ble Montez OLSON, Oscar Rushing Primary Care Provider Oscar Herrmann MD Unavailable JOHN AGUILAR Attending OSCAR Strong Attending Unavailable JOHN AGUILAR Attending UnavailOSCAR Avendano Attending Unavailable CLARIBEL CRAIG Attending Unavailable LAMAR SCHROEDER Attending OSCAR Tenorio Attending OSCAR Tenorio Attending Shayla Allergies Allergy Classification Reported Allergen(s) Allergy Type Date of Onset Reaction(s) Facility (17 sources) Penicillin G Drug Allergy 08-22-2022 Unknown [facility] Medications Current Medications Medication Drug Class(es) Dates Sig (Normalized) Sig (Original) allopurinol 300 mg oral tablet (17 sources) Xanthine Oxidase Inhibitor Start: 01-20-2024 take 1 tablet by mouth once daily allopurinol (Zyloprim) 300 MG tablet Indications: Gout, unspecified TAKE 1 TABLET BY MOUTH EVERY DAY 100 tablet 3 01/20/2024 Active Start: 01-18-2023 take 1 tablet by art th once daily allopurinol (Zyloprim) 300 MG tablet Indications: Gout, unspecified TAKE 1 TABLET BY MOUTH EVERY DAY 90 tablet 3 01/18/2023 Active aspirin 81 mg chewable tablet (17 sources) Platelet Aggregation Inhibitor, Nonsteroidal Anti-inflammatory Drug Start: 05-17-2023 End: 05-16-2024 aspirin 81 MG chewable tablet Indications: Atherosclerosis of aorta (CMS/HCC) Chew 1 tablet (81 mg) Daily 30 tablet 11 05/17/2023 05/16/2024 Active Blood Glucose Monitoring Suppl ([facility] Blood Glucose Meter) w/Device kit (17 sources) Start: 07-15-2023 Blood Glucose Monitoring Suppl ([facility] Blood Glucose Meter) w/Device kit Indications: Type 2 diabetes mellitus with stage 3a chronic kidney disease, without long-term current use of insulin (HCC) ([facility]) 1 Device Daily 1 kit 07/15/2023 Active furosemide 40 mg oral tablet (20 sources) Loop Diuretic Start: 02-21-2024 End: 03-02-2024 take 1 tablet by mouth once daily furosemide (Lasix) 40 MG tablet Indications: Chronic systolic CHF (congestive heart failure), NYHA class 3 ([facility]) Take 1 tablet (40 mg) by mouth Daily 90 tablet 3 02/21/2024 03/02/2024 Discontinued Start: 09-06-2023 take 1 tablet by art th once daily in the morning furosemide (Lasix) 20 MG tablet Indications: Edema, unspecified type TAKE 1 TABLET BY MOUTH EVERY DAY IN THE MORNING 90 tablet 4 09/06/2023 Active glipiZIDE er 5 mg 24 hr extended release oral tablet (13 sources) Sulfonylurea Start: 12-08-2023 End: 03-07-2024 take 1 tablet by mouth once daily glipiZIDE XL (Glucotrol XL) 5 MG 24 hr tablet Indications: Type 2 diabetes mellitus with stage 3a chronic kidney disease, without long-term current use of insulin (HCC) ([facility]) Take 1 tablet (5 mg) by mouth Daily Do not crush, chew, or split. 30 tablet 2 12/08/2023 03/07/2024 Active Start: 12-03-2023 End: 12-08-2023 take 1 tablet by mouth at mealtime glipiZIDE XL (Glucotrol XL) 5 MG 24 hr tablet TAKE 1 TABLET BY MOUTH, USE WITHIN 30 MINUTES OF A MEAL 12/03/2023 12/08/2023 Discontinued (Reorder) latanoprost 0.05 mg/ml ophthalmic solution (17 sources) Prostaglandin Analog Start: 03-12-2023 take 1 drop(s) into the eye(s) once daily latanoprost (Xalatan) 0.005 % ophthalmic solution Administer 1 drop into both eyes Daily 03/12/2023 Active lisinopril 20 mg oral tablet (12 sources) Angiotensin Converting Enzyme Inhibitor Start: 05-17-2023 End: 05-16-2024 take 1 tablet by mouth once daily lisinopril 20 MG tablet Indications: Benign essential hypertension (CMS/HCC) Take 1 tablet (20 mg) by mouth Daily 90 tablet 3 05/17/2023 01/26/2024 Discontinued metoprolol tartrate 50 mg oral tablet (15 sources) beta-Adrenergic Pranav Start: 01-14-2024 take 1 tablet by mouth in the morning metoprolol tartrate (Lopressor) 50 MG tablet Take 50 mg by mouth in the morning and 50 mg before bedtime. 01/14/2024 Active Start: 12-03-2023 End: 03-07-2024 take 1 tablet by mouth in the morning metoprolol tartrate (Lopressor) 100 MG tablet Indications: Atrial flutter with rapid ventricular response (CMS/HCC) Take 1 tablet (100 mg) by mouth in the morning and 1 tablet (100 mg) before bedtime. 60 tablet 2 12/08/2023 01/26/2024 Discontinued (Dose adjustment) microencapsulated potassium chloride 20 meq extended release oral tablet (2 sources) Start: 02-25-2024 potassium chlo ride CR (Klor-Con M20) 20 MEQ ER tablet Take 20 mEq by mouth Daily 02/25/2024 Active predniSONE 2.5 mg oral tablet (19 sources) Start: 11-17-2023 End: 11-16-2024 take 1 tablet by mouth once daily predniSONE (Deltasone) 2.5 MG tablet Indications: Polymyalgia rheumatica (CMS/HCC) Take 1 tablet (2.5 mg) by mouth Daily 30 tablet 11 11/17/2023 11/16/2024 Active Start: 09-06-2023 End: 08-26-2024 take 2 tablets by mouth in the morning predniSONE (Deltasone) 5 MG tablet Indications: Polymyalgia rheumatica (CMS/HCC) TAKE 2 TABLETS (10 MG) BY MOUTH IN THE MORNING 60 tablet 5 09/06/2023 11/17/2023 Discontinued (Reorder) sacubitril 24 mg / valsartan 26 mg oral tablet (7 sources) Angiotensin 2 Receptor Pranav Start: 01-26-2024 End: 01-20-2025 take 1 tablet by mouth in the morning sacubitril-valsartan (Entresto) 24-26 MG tablet Indications: Chronic systolic CHF (congestive heart failure), NYHA class 3 (CMS/HCC) Take 1 tablet by mouth in the morning and 1 tablet before bedtime. 60 tablet 11 01/26/2024 01/20/2025 Active Completed/Discontinued Medications Medication Drug Class(es) Dates Sig (Normalized) Sig (Original) amLODIPine 5 mg oral tablet (8 sources) Dihydropyridine Calcium Channel Pranav Start: 10-20-2023 End: 12-08-2023 take 1 tablet by mouth once daily amLODIPine (Norvasc) 5 MG tablet Indications: Benign essential hypertension (CMS/HCC) TAKE 1 TABLET BY MOUTH EVERY DAY 100 tablet 3 10/20/2023 12/08/2023 Discontinued (Discontinued by another clinician) cefdinir 300 mg oral capsule (5 sources) Cephalosporin Antibacterial Start: 11-17-2023 End: 11-24-2023 take 1 capsule by mouth in the morning cefdinir (Omnicef) 300 MG capsule Indications: Cellulitis of right lower extremity Take 1 capsule (300 mg) by mouth in the morning and 1 capsule (300 mg) before bedtime. Do all this for 7 days. 14 capsule 11/17/2023 11/24/2023 Discontinued (Therapy completed) metFORMIN hydrochloride 1000 mg oral tablet (6 sources) Biguanide Start: 11-16-2023 End: 11-15-2024 take 1 tablet by mouth at mealtime metFORMIN (Glucophage) 1000 MG tablet Indications: Type 2 diabetes mellitus with stage 3a chronic kidney disease, without long-term current use of insulin (HCC) ([facility]) TAKE 1 TABLET (1,000 MG) BY MOUTH IN THE MORNING. TAKE WITH MEALS. 100 tablet 3 11/16/2023 11/24/2023 Discontinued Problems Active Problems Problem Classification Problem Date Documented Date Episodic/Chronic Administrative/social admission (2 sources) Patient encounter status; Translations: [Other specified counseling] 01-26-2024 Episodic Cardiac dysrhythmias (4 sources) Atrial flutter; Translations: [Unspecified atrial flutter] 12-08-2023 Chronic Chronic kidney disease (20 sources) Chronic kidney disease stage 3A ; Translations: [Stage 3a chronic kidney disease (HCC) (CMS/HCC)] Onset: 08-22-2022 Resolved: 11-24-2023 12-08-2023 Chronic Congestive heart failure; nonhypertensive (12 sources) Chronic systolic heart failure; Translations: [Chronic systolic (congestive) heart failure] Onset: 01-26-2024 01-26-2024 Chronic Diabetes mellitus with complications (20 sources) Type 2 diabetes mellitus; Translations: [Type 2 diabetes mellitus with diabetic chronic kidney disease] Onset: 08-22-2022 12-08-2023 Chronic Essential hypertension (20 sources) Benign essential hypertension; Translations: [Essential (primary) hypertension] Onset: 08-22-2022 08-22-2022 Chronic Gout and other crystal arthropathies (17 sources) Gout; Translations: [Gout, unspecified] Onset: 08-22-2022 08-22-2022 Chronic Osteoarthritis (17 sources) Arthritis; Translations: [Unspecified osteoarthritis, unspecified site] Onset: 08-22-2022 08-22-2022 Chronic Other connective tissue disease (19 sources) Polymyalgia rheumatica; Translations: [Polymyalgia rheumatica] Onset: 08-22-2022 08-22-2022 Chronic Other non-traumatic joint disorders (17 sources) Polyarthropathy; Translations: [Polyarthritis, unspecified] Onset: 08-22-2022 08-22-2022 Chronic Other upper respiratory disease (17 sources) Allergic rhinitis; Translations: [Allergic rhinitis, unspecified] Onset: 08-22-2022 08-22-2022 Chronic Peripheral and visceral atherosclerosis (19 sources) Atherosclerosis of aorta; Translations: [Atherosclerosis of aorta] Onset: 05-17-2023 05-17-2023 Chronic Pulmonary heart disease (2 sources) Pulmonary hypertension; Translations: [Pulmonary hypertension, unspecified] 12-08-2023 Chronic Residual codes; unclassified (2 sources) Bilateral lower limb edema; Translations: [Localized edema] 12-08-2023 Episodic Residual codes; unclassified (2 sources) Pitting edema; Translations: [Edema, unspecified] 11-24-2023 Episodic Skin and subcutaneous tissue infections (4 sources) Cellulitis of right lower limb; Translations: [Cellulitis of right lower limb] 11-17-2023 Episodic Thyroid disorders (15 sources) Acquired hypothyroidism; Translations: [Hypothyroidism, unspecified] Onset: 11-24-2023 11-24-2023 Chronic Past or Other Problems Problem Classification Problem Date Documented Date Episodic/Chronic Other screening for suspected conditions (not mental disorders or infectious disease) (20 sources) Abnormal result of cardiovascular function study, unspecified; Translations: [Abnormal cardiovascular function study, unspecified] Onset: 08-22-2022 12-08-2023 Episodic Residual codes; unclassified (20 sources) Localized edema; Translations: [Localized edema] Onset: 11-17-2023 11-17-2023 Episodic Results Test Name Value Interpretation Reference Range [facility] - Hematology and Cell countson 03-02-2024 HbA1c (Bld) [Mass fraction] 6.5 % [facility] Bjond No Panel Informationon 03-02 [facility] - [facility]ematology and Cell countson 11-17-2023 HbA1c (Bld) [Mass fraction] 6.7 % [facility] No Panel Informationon 11-16 [facility] Complete Blood Counton 07-14 Erythrocyte distribution width (RBC) [Ratio] 14.3 % Normal 11.0-15.0 [facility] V[facility]ational Rehabilitation Counselor Comment on above: Performed By: #### T SH reflex FT4, FT4, LIPD, CMP, CBC #### [facility] [address] [place], [place] [id number] Hematocrit (Bld) [Volume fraction] 36.4 % Normal 35.0-47.0 [facility] Counselor Comment on above: Performed By: #### T SH reflex FT4, FT4, LIPD, CMP, CBC #### [facility] [address] [place], [place] [id number] Hemoglobin (Bld) [Mass/Vol] 11.8 g/dL Normal 11.6-15.5 [facility]ational Rehabilitation Counselor Comment on above: Performed By: #### T SH reflex FT4, FT4, LIPD, CMP, CBC #### [facility] [address] [place], [place] [id number] MCH (RBC) [Entitic mass] 29.4 pg Normal 27.0-33.0 [facility]ational Rehabilitation Counselor Comment on above: Performed By: #### T SH reflex FT4, FT4, LIPD, CMP, CBC #### [facility] [address] [place], [place] [id number] MCHC (RBC) [Mass/Vol] 32.4 g/dL Normal 32.0-36.0 [facility] [place] Comment on above: Performed By: #### T SH reflex FT4, FT4, LIPD, CMP, CBC #### [facility] [address] [place], [place] [id number] MCV (RBC) [Entitic vol] 91 fL Normal 80-100 [facility] Specialist Comment on above: Performed By: #### T SH reflex FT4, FT4, LIPD, CMP, CBC #### [facility] [address] [place], [place] [id number] Platelet mean volume (Bld) [Entitic vol] 9.90 fL Normal 7.50-12.50 [facility] Comment on above: Performed By: #### T SH reflex FT4, FT4, LIPD, CMP, CBC #### [facility] [address] [place], [place] [id number] Platelets (Bld) [#/Vol] 205 10*3/uL Normal 140-400 [facility] Comment on above: Performed By: #### T SH reflex FT4, FT4, LIPD, CMP, CBC #### [facility] [address] [place], [place] [id number] RBC (Bld) [#/Vol] 4.02 10*6/uL Normal 3.90-5.20 [facility] Comment on above: Performed By: #### T SH reflex FT4, FT4, LIPD, CMP, CBC #### [facility] [address] [place], [place] [id number] RDW-SD 47.6 fL Normal 37.0-50.0 [facility] Comment on above: Performed By: #### T SH reflex FT4, FT4, LIPD, CMP, CBC #### [facility] [address] [place], [place] [id number] WBC (Bld) [#/Vol] 7.8 10*3/uL Normal 3.8-11.0 [facility] Comment on above: Performed By: #### T SH reflex FT4, FT4, LIPD, CMP, CBC #### [facility] [address] [place], [place] [id number] Comprehensive Metabolic Pane yonny 07-14-2021 Albumin [Mass/Vol] 4.5 g/dL Normal 3.6-5.1 [facility] Comment on above: Performed By: #### T SH reflex FT4, FT4, LIPD, CMP, CBC #### [facility] [address] [place], [place] [id number] Albumin/Globulin [Mass ratio] 1.7 {ratio} Normal 1.0-2.5 [facility] Comment on above: Performed By: #### T SH reflex FT4, FT4, LIPD, CMP, CBC #### [facility] [address] [place], [place] [id number] ALP [Catalytic activity/Vol] 91 U/L Normal 35-119 [facility] Comment on above: Performed By: #### T SH reflex FT4, FT4, LIPD, CMP, CBC #### [facility] [address] [place], [place] [id number] ALT [Catalytic activity/Vol] 17 U/L Normal 6-33 [facility] Comment on above: Result Comment: 01/29 Female reference range changed. Performed By: #### T SH reflex FT4, FT4, LIPD, CMP, CBC #### [facility] [address] [place], [place] [id number] Anion gap [Moles/Vol] 19 mmol/L Normal 12-20 [facility] Comment on above: Result Comment: Effe ctive 03/06/2019 reference range changed. Performed By: #### T SH reflex FT4, FT4, LIPD, CMP, CBC #### [facility] [address] [place], [place] [id number] AST [Catalytic activity/Vol] 24 U/L Normal 9-34 [facility] Comment on above: Performed By: #### T SH reflex FT4, FT4, LIPD, CMP, CBC #### [facility] [address] [place], [place] [id number] Bilirubin [Mass/Vol] 0.34 mg/dL Normal 0.30-1.20 [place] [facility] Counsel[facility] Comment on above: Performed By: #### T SH reflex FT4, FT4, LIPD, CMP, CBC #### [facility] [address] [place], [place] [id number] BUN/CREA 23 Ratio High 6-22 [facility] Specialist Comment on above: Performed By: #### T SH reflex FT4, FT4, LIPD, CMP, CBC #### [facility] [address] [place], [place] [id number] Calcium [Mass/Vol] 10.3 mg/dL High 8.6-10.2 [facility] Comment on above: Performed By: #### T SH reflex FT4, FT4, LIPD, CMP, CBC #### [facility] [address] [place], [place] [id number] Chloride [Moles/Vol] 105 mmol/L Normal 98-107 [facility] Specialist Comment on above: Performed By: #### T SH reflex FT4, FT4, LIPD, CMP, CBC #### [facility] [address] [place], [place] [id number] CO2 [Moles/Vol] 24 mmol/L Normal 20-31 [facility] Specialist Comment on above: Performed By: #### T SH reflex FT4, FT4, LIPD, CMP, CBC #### [facility] [address] [place], [place] [id number] Creatinine [Mass/Vol] 1.1 mg/dL Normal 0.6-1.4 [facility] Specialist Comment on above: Performed By: #### T SH reflex FT4, FT4, LIPD, CMP, CBC #### [facility] [address] [place], [place] [id number] eGFRAA 58 mL/min/1.73m2 Low >60 [facility] Specialist Comment on above: Performed By: #### T SH reflex FT4, FT4, LIPD, CMP, CBC #### [facility] [address] [place], [place] [id number] eGFRNAA 48 mL/min/1.73m2 Low >60 [facility] V[facility]ational Rehabilitation Counselor Comment on above: Performed By: #### T SH reflex FT4, FT4, LIPD, CMP, CBC #### [facility] [address] [place], [place] [id number] Globulin (S) [Mass/Vol] 2.6 g/dL Normal 1.9-3.7 [facility] V[facility]ational Rehabilitation Counselor Comment on above: Performed By: #### T SH reflex FT4, FT4, LIPD, CMP, CBC #### [facility] [address] [place], [place] [id number] Glucose [Mass/Vol] 139 mg/dL High 65-99 [place] [facility] Counsel[facility] Comment on above: Result Comment: For FASTING Glucose --- ADA reference ranges: Normal 65-99 mg/dl Prediabetes 100-125 Diabetes >/= 126 Performed By: #### T SH reflex FT4, FT4, LIPD, CMP, CBC #### [facility] [address] [place], [place] [id number] Potassium [Moles/Vol] 4.1 mmol/L Normal 3.5-5.5 [facility] V[facility]ational Rehabilitation Counselor Comment on above: Performed By: #### T SH reflex FT4, FT4, LIPD, CMP, CBC #### [facility] [address] [place], [place] [id number] Protein [Mass/Vol] 7.1 g/dL Normal 6.1-8.1 [place] [facility] [place] [facility] Counsel[facility] Comment on above: Performed By: #### T SH reflex FT4, FT4, LIPD, CMP, CBC #### [facility] [address] [place], [place] [id number] Sodium [Moles/Vol] 144 mmol/L Normal 135-146 [place] [facility] [place] [facility] Counsel[facility] Comment on above: Performed By: #### T SH reflex FT4, FT4, LIPD, CMP, CBC #### [facility] [address] [place], [place] [id number] Urea nitrogen [Mass/Vol] 25 mg/dL Normal 7-25 [facility] V[facility]ational Rehabilitation Counselor Comment on above: Performed By: #### T SH reflex FT4, FT4, LIPD, CMP, CBC #### [facility] [address] [place], [place] [id number] Free T4on 07-14-2021 Free T4 [Mass/Vol] 1.13 ng/dL Normal 0.80-1.80 [place] [facility] Comment on above: Performed By: #### T SH reflex FT4, FT4, LIPD, CMP, CBC #### [facility] [address] [place], [place] [id number] Lipid Panelon 07-14-2021 Cholesterol [Mass/Vol] 223 mg/dL High 125-200 [facility] Comment on above: Result Comment: Low risk < 200mg/dL Borderline risk 201-239 mg/dl High risk > or equal to 240 Performed By: #### T SH reflex FT4, FT4, LIPD, CMP, CBC #### [facility] [address] [place], [place] [id number] Cholesterol in HDL [Mass/Vol] 72 mg/dL Normal >40 [facility] Specialist Comment on above: Result Comment: High Cardiovascular Risk HDL <40 mg/dL Low Cardiovascular Risk HDL > or equal to 60 mg/dl Performed By: #### T SH reflex FT4, FT4, LIPD, CMP, CBC #### [facility] [address] [place], [place] [id number] Cholesterol in LDL [Mass/Vol] 125 mg/dL Normal [facility] Comment on above: Result Comment: LDL ATP III CLASSIFICATION LDL less than 100 mg/dl Optimal LDL 100-129 mg/dl Near or above optimal LDL 130-159 Borderline high LDL 160-189 High LDL greater than 189 mg/dl Very High Performed By: #### T SH reflex FT4, FT4, LIPD, CMP, CBC #### [facility] [address] [place], [place] [id number] Cholesterol in VLDL [Mass/Vol] 26 mg/dL Normal [facility] Comment on above: Performed By: #### T SH reflex FT4, FT4, LIPD, CMP, CBC #### [facility] [address] [place], [place] [id number] Cholesterol.total/C holesterol in HDL [Mass ratio] 3 {ratio} Normal [facility] Comment on above: Performed By: #### T SH reflex FT4, FT4, LIPD, CMP, CBC #### [facility] [address] [place], [place] [id number] Triglyceride [Mass/Vol] 129 mg/dL Normal 30-150 [facility] Specialist Comment on above: Result Comment: TRIG ATPIII CLASSIFICATIONS TRIG less than 150 mg/dl Normal TRIG 150-199 mg/dl Borderline High TRIG 200-500 mg/dl High TRIG greather than 500 mg/dl Very High Performed By: #### T SH reflex FT4, FT4, LIPD, CMP, CBC #### [facility] [address] [place], [place] [id number] TSH w/ Reflex to Free T4on 0 07-14-2021 FT4 reflex Free T4 Normal [facility] V[facility]ational Rehabilitation Counselor Comment on above: Performed By: #### T SH reflex FT4, FT4, LIPD, CMP, CBC #### [facility] [address] [place], [place] [id number] TSH 4.720 uIU/mL High 0.400-4.500 [facility] Vocational Rehabilitation Counselor Comment on above: Performed By: #### T SH reflex FT4, FT4, LIPD, CMP, CBC #### [facility] [address] [place], [place] [id number] Vital Signs Date Time Vital Sign Value Performing Clinician Faci lity 03-02-2024 10:22-0500 Body height 167.6 cm Oscar Herrmann MD Work Phone: [facility] 03-02-2024 10:22-0500 Body mass index (BMI) [Ratio] 30.51 kg/m2 Oscar Herrmann MD Work Phone: [facility] 03-02-2024 10:22-0500 Body weight 85.73 kg Oscar Herrmann MD Work Phone: [facility] 03-02-2024 10:22-0500 Diastolic blood pressure 80 mm[Hg] Oscar Herrmann MD Work Phone: [facility] 03-02-2024 10:22-0500 Heart rate 75 /min Oscar Herrmann MD Work Phone: [facility] 03-02-2024 10:22-0500 SaO2% (BldA) [Mass fraction] 99 % Oscar Herrmann MD Work Phone: [facility] 03-02-2024 10:22-0500 Systolic blood pressure 134 mm[Hg] Oscar Herrmann MD Work Phone: [facility] 01-26-2024 09:27-0500 Body height 167.6 cm Oscar Herrmann MD Work Phone: [facility] 01-26-2024 09:27-0500 Body mass index (BMI) [Ratio] 30.02 kg/m2 Oscar Herrmann MD Work Phone: [facility] 01-26-2024 09:27-0500 Body weight 84.37 kg Oscar Herrmann MD Work Phone: [facility] 01-26-2024 09:27-0500 Diastolic blood pressure 78 mm[Hg] Oscar Herrmann MD Work Phone: [facility] 01-26-2024 09:27-0500 Heart rate 52 /min Oscar Herrmann MD Work Phone: [facility] 01-26-2024 09:27-0500 SaO2% (BldA) [Mass fraction] 96 % Oscar Herrmann MD Work Phone: [facility] 01-26-2024 09:27-0500 Systolic blood pressure 158 mm[Hg] Oscar Herrmann MD Work Phone: [facility] 12-08-2023 13:49-0400 Body height 167.6 cm Lamar Schroeder GRAPHICS ARTIST Work Phone: [facility] 12-08-2023 13:49-0400 Body mass index (BMI) [Ratio] 30.18 kg/m2 Lamar Schroeder GRAPHICS ARTIST Work Phone: [facility] 12-08-2023 13:49-0400 Body weight 84.82 kg Lamar Schroeder GRAPHICS ARTIST Work Phone: [facility] 12-08-2023 13:49-0400 Diastolic blood pressure 82 mm[Hg] Lamar Schroeder GRAPHICS ARTIST Work Phone: [facility] 12-08-2023 13:49-0400 Heart rate 122 /min Lamar Schroeder GRAPHICS ARTIST Work Phone: [facility] 12-08-2023 13:49-0400 SaO2% (BldA) [Mass fraction] 98 % Lmaar Schroeder GRAPHICS ARTIST Work Phone: [facility] 12-08-2023 13:49-0400 Systolic blood pressure 128 mm[Hg] Lamar Schroeder GRAPHICS ARTIST Work Phone: [facility] 11-24-2023 13:59-0400 Body height 167.6 cm Claribel Hemmer PA Work Phone: [facility] 11-24-2023 13:59-0400 Body mass index (BMI) [Ratio] 29.99 kg/m2 Claribel Hemmer PA Work Phone: [facility] 11-24-2023 13:59-0400 Body weight 84.28 kg Claribel Hemmer PA Work Phone: [facility] 11-24-2023 13:59-0400 Diastolic blood pressure 88 mm[Hg] Claribel Hemmer PA Work Phone: [facility] 11-24-2023 13:59-0400 Heart rate 141 /min Claribel Hemmer PA Work Phone: [facility] 11-24-2023 13:59-0400 Respiratory rate 16 /min Claribel Hemmer PA Work Phone: [facility] 11-24-2023 13:59-0400 SaO2% (BldA) [Mass fraction] 96 % Claribel Hemmer PA Work Phone: [facility] 11-24-2023 13:59-0400 Systolic blood pressure 138 mm[Hg] Claribel Hemmer PA Work Phone: [facility] 11-17-2023 10:12-0400 Body height 167.6 cm Oscar Herrmann MD Work Phone: [facility] 11-17-2023 10:12-0400 Body mass index (BMI) [Ratio] 30.02 kg/m2 Oscar Herrmann MD Work Phone: [facility] 11-17-2023 10:12-0400 Body weight 84.37 kg Oscar Herrmann MD Work Phone: [facility] 11-17-2023 10:12-0400 Diastolic blood pressure 80 mm[Hg] Oscar Herrmann MD Work Phone: [facility] 11-17-2023 10:120400 Heart rate 108 /min Oscar Herrmann MD Work Phone: [facility] 11-17-2023 10:120400 SaO2% (BldA) [Mass fraction] 99 % Oscar Herrmann MD Work Phone: [facility] 11-17-2023 10:120400 Systolic blood pressure 130 mm[Hg] Oscar Herrmann MD Work Phone: [facility] Encounters Encounter Date Encounter Type Care Provider Facility Start: 05-09-2024 End: 05-09-2024 ambulatory JOHN AGUILAR Not Available Start: 03-02-2024 End: 03-02-2024 Bamboo flowsheet Oscar Herrmann MD Work Phone: [facility] Start: 03-02-2024 End: 03-02-2024 Bamboo flowsheet Oscar Herrmann MD Work Phone: [facility] Start: 03-02-2024 End: 03-02-2024 Office outpatient visit 25 minutes Oscar Herrmann MD Work Phone: [facility] Comment on above: Type 2 diabetes erinn itus with stage 3a chronic kidney disease, without long-term current use of insulin (HCC) ([facility]) (Primary Dx); Chronic systolic CHF (congestive heart failure), NYHA class 3 ([facility]); Unspecified atrial flutter ([facility]/HCC) Start: 03-02-2024 End: 03-02-2024 ambulatory OSCAR HERRMANN Not Available Start: 02-19-2024 End: 02-21-2024 Refill Lamar Schroeder NP Work Phone: [facility] Comment on above: Benign essential hyp ertension (CMS/HCC) (Primary Dx); Chronic systolic CHF (congestive heart failure), NYHA class 3 (CMS/HCC) Start: 02-02-2024 End: 02-02-2024 Telephone encounter Oscar Herrmann MD Work Phone: [facility] Start: 01-26-2024 End: 01-26-2024 Bamboo flowsheet Oscar Herrmann MD Work Phone: [facility] Start: 01-26-2024 End: 01-26-2024 Bamboo flowsheet Oscar Herrmann MD Work Phone: [facility] Start: 01-26-2024 End: 01-26-2024 Assay of hemosiderin, quant Oscar Herrmann MD Work Phone: [facility] Work Phone: Start: 01-26-2024 End: 01-26-2024 Patient encounter procedure Oscar Herrmann MD Work Phone: [facility] Comment on above: Routine general medi bert examination at health care facility (Primary Dx); ACP (advance care planning); Chronic systolic CHF (congestive heart failure), NYHA class 3 (CMS/HCC); CKD (chronic kidney disease) stage 4, GFR 15-29 ml/min (CMS/HCC) Start: 01-26-2024 End: 01-26-2024 ambulatory OSCAR HERRMANN Not Available Start: 12-13-2023 End: 12-13-2023 Telephone encounter Oscar Herrmann MD Work Phone: [facility] Start: 12-08-2023 End: 12-08-2023 Office outpatient visit 25 minutes Lamar Schroeder GRAPHICS ARTIST Work Phone: [facility] Comment on above: Atrial flutter with rapid ventricular response (CMS/HCC) (Primary Dx); Type 2 diabetes mellitus with stage 3a chronic kidney disease, without long-term current use of insulin (HCC) (CMS/HCC); Low left ventricular ejection fraction; Bilateral lower extremity edema; Stage 3a chronic kidney disease (HCC) (CMS/HCC); Pulmonary hypertension, unspecified (CMS/HCC) Start: 12-08-2023 End: 12-08-2023 ambulatory LAMAR SCHROEDER Not Available Start: 11-24-2023 End: 11-24-2023 Bamboo flowsheet Claribel SCHILLING Work Phone: [facility] Start: 11-24-2023 End: 11-24-2023 Bamboo flowsheet Claribel SCHILLING Work Phone: [facility] Start: 11-24-2023 End: 11-24-2023 Office outpatient visit 25 minutes Claribel SCHILLING Work Phone: [facility] Comment on above: Localized edema (Vi angelita Dx); CKD (chronic kidney disease) stage 4, GFR 15-29 ml/min (CMS/HCC); Abnormal TSH; Acquired hypothyroidism (CMS/HCC); Cellulitis of right lower extremity; Pitting edema; Benign essential hypertension (CMS/HCC); Atherosclerosis of aorta (I70.0) Start: 11-24-2023 End: 11-24-2023 ambulatory CLARIBEL CRAIG Not Available Start: 11-17-2023 End: 11-17-2023 Bamboo flowsheet Oscar Herrmann MD Work Phone: [facility] Start: 11-17-2023 End: 11-17-2023 Bamboo flowsheet Oscar Herrmann MD Work Phone: [facility] Start: 11-17-2023 End: 11-17-2023 Office outpatient visit 25 minutes Oscar Herrmann MD Work Phone: [facility] Comment on above: Polymyalgia rheumati ca (CMS/HCC) (Primary Dx); Benign essential hypertension (CMS/HCC); Stage 3a chronic kidney disease (HCC) (CMS/HCC); Type 2 diabetes mellitus with stage 3a chronic kidney disease, without long-term current use of insulin (HCC) (CMS/HCC); Abnormal TSH; Cellulitis of right lower extremity; Localized edema Start: 11-17-2023 End: 11-17-2023 ambulatory OSCAR HERRMANN Not Available Start: 05-27-2023 End: 05-27-2023 ambulatory JOHN AGUILAR Not Available Start: 05-17-2023 End: 05-17-2023 ambulatory OSCAR HERRMANN Not Available Start: 06-26-2020 End: 06-27-2020 ambulatory NONE LISTED REQUEST Facility: Start: 06-05-2020 End: 06-06-2020 ambulatory NONE LISTED REQUEST Facility: Start: 03-14-2018 End: 03-15-2018 Patient encounter procedure DEFAULT PHYSICIAN Facility:[facility] Procedures Date Procedure Procedure Detail Performing Clinician Start: 03-02-2024 Hemoglobin glycosyla leslye a1c Oscar Herrmann MD Work Phone: Start: 11-17-2023 Hemoglobin glycosyla leslye a1c Oscar Herrmann MD Work Phone: Plan of Treatment Date Care Activity Detail Author Start: 01-25-2025 Medicare Annual Wellness (AWV) Medicare Annual Wellness (AWV) [facility] Start: 01-25-2025 Pneumococcal Vaccine : 65+ Years (1 of 2 - PCV) Pneumococcal Vaccine: 65+ Years (1 of 2 - PCV) [facility] Comment on above: Postponed from 10/02 (Patient Refused) Start: 11-16-2024 Urine screening for protein Diabetes: Urine Protein Screening [facility] Start: 05-31-2024 Hemoglobin A1c measurement Diabetes: Hemoglobin A1C [facility] Start: 03-22-2024 Influenza vaccination Influenza Vacc ine (#1) [facility] Comment on above: Postponed from 10/30 (Patient Refused) Start: 03-09-2024 End: 03-09-2024 Patient encounter procedure 03/09/2024 2:00 PM EST Office Visit [facility] [address] [facility] [address] [place] [id number] Lamar Schroeder, GRAPHICS ARTIST [address] [facility] [address] [place] [address] [facility] Start: 03-02-2024 End: 03-02-2024 Patient encounter procedure [facility] Comment on above: Arrived Start: 02-16-2024 Hemoglobin A1c measurement Diabetes: Hemoglobin A1C [facility] Start: 01-26-2024 End: 01-26-2024 Patient encounter procedure [facility] Comment on above: Arrived Start: 01-16-2024 Medicare Annual Wellness (AWV) Medicare Annual Wellness (AWV) [facility] Start: 01-16-2024 Pneumococcal Vaccine : 65+ Years (1 of 2 - PCV) Pneumococcal Vaccine: 65+ Years (1 of 2 - PCV) [facility] Comment on above: Postponed from 10/02 (Patient Refused) Start: 12-31-2023 End: 12-31-2023 Patient encounter procedure 12/31/2023 1:15 PM EDT Procedure Visit [facility] [address] [facility] [phone] John Aguilar DPM [address] [facility] [place] [address] [facility] Start: 12-13-2023 End: 12-13-2023 Patient encounter procedure 12/13/2023 11:30 AM EDT Office Visit [facility] [address] [facility] [address] [place] [id number] Oscar Herrmann MD [address] [facility] [address] [place] [address] [facility] Start: 12-08-2023 End: 12-07-2024 CBC panel - Blood by Automated count CBC Lab Routine Stage 3a chronic kidney disease (HCC) ([facility]/HCC) Expected: 12/08/2023 (Approximate), Expires: 12/07/2024 [facility] Work Phone: Comment on above: Expected: 12/08/2023 (Approximate), Expires: 12/07/2024 Start: 11-24-2023 End: 11-23-2025 Heart Transthoracic Transthoracic Echo (TTE) Complete Echocardiography Routine CKD (chronic kidney disease) stage 4, GFR 15-29 ml/min ([facility]) Pitting edema Benign essential hypertension ([facility]) Atherosclerosis of aorta (I70.0) Expected: 11/24/2023 (Approximate), Expires: 11/23/2025 [facility] Work Phone: Comment on above: Expected: 11/24/2023 (Approximate), Expires: 11/23/2025 Start: 11-24-2023 End: 11-24-2023 Patient encounter procedure [facility] Comment on above: Arrived Start: 11-17-2023 End: 11-16-2024 Comprehensive metabolic 2000 panel - Serum or Plasma Comprehensive metabolic panel Lab Routine Stage 3a chronic kidney disease (HCC) (CMS/HCC) Expected: 11/17/2023 (Approximate), Expires: 11/16/2024 [facility] Work Phone: Comment on above: Expected: 11/17/2023 (Approximate), Expires: 11/16/2024 Start: 11-17-2023 End: 11-16-2024 Lipid 1996 panel - Serum or Plasma Lipid panel Lab Routine Type 2 diabetes mellitus with stage 3a chronic kidney disease, without long-term current use of insulin ([facility]) ([facility]) Expected: 11/17/2023 (Approximate), Expires: 11/16/2024 [facility] Comment on above: Expected: 11/17/2023 (Approximate), Expires: 11/16/2024 Start: 11-17-2023 End: 11-16-2024 TSH W/REFLEX TO FT4 TSH W/REFLEX TO FT4 Lab Routine Abnormal TSH Expected: 11/17/2023 (Approximate), Expires: 11/16/2024 [facility] Comment on above: Expected: 11/17/2023 (Approximate), Expires: 11/16/2024 Start: 11-17-2023 End: 11-17-2023 Patient encounter procedure 11/17/2023 10:30 AM EDT Office Visit [facility] [address] [facility] [address] [place] [phone] Oscar Herrmann MD [address] [facility] [address] [place] [address] Arrived [facility] Comment on above: Arrived Start: 10-31-2023 Influenza vaccination Influenza Vacc ine (#1) [facility] Start: 08-17-2023 Hemoglobin A1c measurement Diabetes: Hemoglobin A1C [facility] Start: 04-09-2023 Urine screening for protein Diabetes: Urine Protein Screening [facility] Start: 01-28-2020 Glaucoma screening Diabetes: R etinopathy Screening [facility] Start: 12-27-2019 Urine screening for protein Diabetes: Urine Protein Screening [facility] Start: 10-02-1941 Pneumococcal Vaccine : 65+ Years (1 of 2 - PCV) Pneumococcal Vaccine: 65+ Years (1 of 2 - PCV) [facility] CBC W Auto Different ial panel - Blood CBC and differential Lab Routine Stage 3a chronic kidney disease (HCC) ([facility]) Ordered: 11/17/2023 [facility] Comment on above: Ordered: 11/17/2023 Immunizations Immunization Date Immunization Notes Care Provider Elvie greenberg 01-26-2022 Moderna SARS-CoV-2 50mcg/0.5mL Booster Oscar Herrmann MD Work Phone: [facility] 07-05-2015 tetanus toxoid, redu renny diphtheria toxoid, and acellular pertussis vaccine, adsorbed Oscar Herrmann MD Work Phone: [facility] Healthcare Payers Date Payer Category Payer Medicare [id number] 2000 Medicare [id number] 1959 Self-pay 1959 Self-pay [id number] 1935 Unknown [id number] [id number] 1935 Unknown [id number] 2.16.84 [id number] 1935 Unknown [id number] 2.16.84 [id number] 1935 Unknown [id number] 2.16.84 [id number] 1935 Unknown [id number] 2.16.84 [id number] 1935 Unknown [id number] 2.16.84 [id number] 1935 Unknown [id number] 2.16.84 [id number] 1935 Unknown [id number] 2.16.84 [id number] 1935 Unknown [id number] 2.16.84 [id number] Unknown Unknown [id number] 2.16.84 [id number] Unknown [id number] 2.16.84 [id number] Social History Date Type Detail Facility Start: 08-22-2022 [facility] Start: 08-22-2022 Tobacco use and exposure Smoke less tobacco non-user [facility] Start: 12-08-2023 End: 03-02-2024 Alcoholic beverage intake Lifetime non-drinker (finding) [facility] Start: 12-08-2023 End: 01-26-2024 [facility] Start: 12-08-2023 End: 01-26-2024 Tobacco use panel [facility] Start: 10-07-2022 Alcohol Comment Caffeine: yes [facility] Start: 1935 Sex assigned at Not on file [facility] Medical Equipment Procedure Code Equipment Code Equipment Origin al Text Equipment Identifier Dates Use as instructed [id number] Start: 07-15-2023 DIRECTED IN V ITRO ONCE A DAY [id number] Start: 06-14-2023 Use 1 daily [id number] Start: 12-29-2023 Clinical Notes 11-17-2023 to 03-02-2024 Oscar Herrmann MD - 03/02/2024 10:30 AM EST Note Date & Type Note Facility 03-02-2024 History of Presen t illness Narrative Images from the original note were not included. Subjective Patient ID: Angelita Harris is a 88 y.o. female who presents for Diabetes and Congestive Heart Failure. Diabetes Mellitus Patient presents for follow up of diabetes. Current symptoms include: none. Patient denies foot ulcerations, hypoglycemia , nausea, polydipsia, polyuria, and visual disturbances. Evaluation to date has included: fasting blood sugar, fasting lipid panel, and hemoglobin A1C. Home sugars: BGs range between 120 and 150 Hypertension Patient is here for follow-up of elevated blood pressure. SBlood pressure is well controlled at home. Cardiac symptoms: none. Patient denies chest pain, claudication, irregular heart beat, near-syncope, orthopnea, palpitations, paroxysmal nocturnal dyspnea, and syncope. Congestive Heart Failure Patient presents for re-evaluation of congestive heart failure. Patient's current complaints are lower extremity edema. She denies chest pain, near-syncope, palpitations, and syncope. She states she is compliant all of the time with her medications. Pt is now on hospice Diabetes Pertinent negatives for diabetes include no chest pain and no fatigue. Congestive Heart Failure Pertinent negatives include no chest pain, fatigue, palpitations or shortness of breath. Hypertension Pertinent negatives include no chest pain, palpitations or shortness of breath. Current Outpatient Medications on File Prior to Visit Medication Sig Dispense Refill allopurinol (Zyloprim) 300 MG tablet TAKE 1 TABLET BY MOUTH EVERY DAY 100 tablet 3 aspirin 81 MG chewable tablet Chew 1 tablet (81 mg) Daily 30 tablet 11 Blood Glucose Monitoring Suppl ([facility] Blood Glucose Meter) w/Device kit 1 Device Daily 1 kit 0 furosemide (Lasix) 20 MG tablet TAKE 1 TABLET BY MOUTH EVERY DAY IN THE MORNING (Patient taking differently: Take 20 mg by mouth in the morning and 20 mg before bedtime.) 90 tablet 4 glipiZIDE XL (Glucotrol XL) 5 MG 24 hr tablet Take 1 tablet (5 mg) by mouth Daily Do not crush, chew, or split. 30 tablet 2 glucose blood ([facility]S Glucose Meter Test Strips) test strip Use as instructed 100 each 3 glucose blood (True Metrix Blood Glucose Test) test strip Use 1 daily 100 strip 3 latanoprost (Xalatan) 0.005 % ophthalmic solution Administer 1 drop into both eyes Daily metoprolol tartrate (Lopressor) 50 MG tablet Take 50 mg by mouth in the morning and 50 mg before bedtime. potassium chloride CR (Klor-Con M20) 20 MEQ ER tablet Take 20 mEq by mouth Daily predniSONE (Deltasone) 2.5 MG tablet Take 1 tablet (2.5 mg) by mouth Daily 30 tablet 11 sacubitril-valsartan (Entresto) 24-26 MG tablet Take 1 tablet by mouth in the morning and 1 tablet before bedtime. 60 tablet 11 [DISCONTINUED] furosemide (Lasix) 40 MG tablet Take 1 tablet (40 mg) by mouth Daily 90 tablet 3 No current facility-administered medications on file prior to visit. I have reviewed and reconciled the history and medication list with the patient today. Allergies Allergen Reactions Penicillin G Unknown Social History Tobacco Use Smoking status: Never Smokeless tobacco: Never Vaping Use Vaping status: Never Used Substance Use Topics Alcohol use: Never Comment: Caffeine: yes Family History Problem Relation Name Age of Onset Diabetes Mother Other (htn) Mother Stroke Mother Other (htn) Father Stroke Father Past Medical History: Diagnosis Date Allergic Diabetes mellitus (CMS/HCC) Hypertension (CMS/HCC) History reviewed. No pertinent surgical history. Visit Vitals BP 134/80 Pulse 75 Ht 5' 6 Wt 189 lb SpO2 99% BMI 30.51 kg/m Smoking Status Never BSA 2 m Review of Systems Constitutional: Negative for fatigue. Respiratory: Negative for shortness of breath. Cardiovascular: Negative for chest pain and palpitations. Objective Physical Exam Vitals reviewed. Constitutional: Appearance: Normal appearance. HENT: Head: Normocephalic and atraumatic. Right Ear: External ear normal. Left Ear: External ear normal. Nose: Nose normal. Eyes: Extraocular Movements: Extraocular movements intact. Conjunctiva/sclera: Conjunctivae normal. Pupils: Pupils are equal, round, and reactive to light. Cardiovascular: Rate and Rhythm: Regular rhythm. Bradycardia present. Heart sounds: No murmur heard. Pulmonary: Breath sounds: Normal breath sounds. Comments: Mild SOB Abdominal: General: Bowel sounds are normal. Palpations: Abdomen is soft. Musculoskeletal: Right lower leg: Edema present. Left lower leg: Edema present. Skin: General: Skin is warm and dry. Coloration: Skin is pale. Neurological: General: No focal deficit present. Mental Status: She is alert and oriented to person, place, and time. Psychiatric: Mood and Affect: Mood normal. Behavior: Behavior normal. Thought Content: Thought content normal. Judgment: Judgment normal. Office Visit on 03/02/2024 Component Date Value Ref Range Status Hemoglobin A1C 03/02/2024 6.5 Final Assessment/Plan Diagnoses and all orders for this visit: Type 2 diabetes mellitus with stage 3a chronic kidney disease, without long-term current use of insulin (HCC) (CMS/HCC) - FSBS log shows good control, most recent A1C is at or near goal. Continue current treatment plan as previously outlined without changes. Chronic systolic CHF (congestive heart failure), NYHA class 3 (CMS/HCC) - No current active congestive heart failure. Dyspnea at exertion, but not at rest. No evidence of pulmonary edema. Medications unchanged. Unspecified atrial flutter (CMS/HCC) - rate controlled. - This office visit was spent in consultation regarding the patient's current medical problems, differential diagnoses, testing/imaging results, and treatment options. Greater than 25 minutes was spent in [id number] consultation and coordination of care. Follow up for She informs me she will now get care through Hospice.. documented in this encounter [facility] 03-02-2024 Evaluation note Diagnosis Type 2 diabetes mellitus with stage 3a chronic kidney disease, without long-term current use of insulin (HCC) ([facility])- Primary Chronic systolic CHF (congestive heart failure), NYHA class 3 ([facility]) Unspecified atrial flutter ([facility]) documented in this encounter [id number] Telephone encounter Note* Telephone Encounter - More Hendrix - 02/02/2024 10:05 AM EST Patient wasn't sure if dr herrmann knew that she was on hospice with [facility]. [id number] Miscellaneous Notes* Telephone Encounter - More Hendrix - 02/02/2024 10:05 AM EST Patient wasn't sure if dr herrmann knew that she was on hospice with [facility]. [facility] [id number] History of Present illness Narrative* Oscar Herrmann MD - 01/26/2024 9:30 AM EST Images from the original note were not included. Subjective : Chief Complaint: Angelita Harris is an 88 y.o. female here for an annual wellness visit. I have reviewed and reconciled the history and medication list with the patient today. Current Outpatient Medications Medication Sig Dispense Refill allopurinol (Zyloprim) 300 MG tablet TAKE 1 TABLET BY MOUTH EVERY DAY 100 tablet 3 aspirin 81 MG chewable tablet Chew 1 tablet (81 mg) Daily 30 tablet 11 Blood Glucose Monitoring Suppl ([facility]S Blood Glucose Meter) w/Device kit 1 Device Daily 1 kit 0 furosemide (Lasix) 20 MG tablet TAKE 1 TABLET BY MOUTH EVERY DAY IN THE MORNING 90 tablet 4 glipiZIDE XL (Glucotrol XL) 5 MG 24 hr tablet Take 1 tablet (5 mg) by mouth Daily Do not crush, chew, or split. 30 tablet 2 glucose blood ([facility]S Glucose Meter Test Strips) test strip Use as instructed 100 each 3 glucose blood (True Metrix Blood Glucose Test) test strip Use 1 daily 100 strip 3 latanoprost (Xalatan) 0.005 % ophthalmic solution Administer 1 drop into both eyes Daily metoprolol tartrate (Lopressor) 50 MG tablet Take 50 mg by mouth in the morning and 50 mg before bedtime. predniSONE (Deltasone) 2.5 MG tablet Take 1 tablet (2.5 mg) by mouth Daily 30 tablet 11 sacubitril-valsartan (Entresto) 24-26 MG tablet Take 1 tablet by mouth in the morning and 1 tablet before bedtime. 60 tablet 11 No current facility-administered medications for this visit. Review of Systems List of current healthcare providers: Patient Care Team: Oscar Herrmann MD as PCP - General (Internal Medicine) Oscar Herrmann MD as PCP - ACO [employer] Medicare Annual Visit Over the past 2 weeks, how often have you been bothered by any of the following problems? Little interest or pleasure in doing things: Not at all Feeling down, depressed, or hopeless: Not at all Patient Health Questionnaire-2 Score: 0 Faye Fall Risk History of Falling, Immediate or Within 3 Months: No Secondary Diagnosis: No Ambulatory Aid: Crutches/cane/walker Health Risk Assessment Form Do you need help eating, bathing, using the toilet, dressing, or getting around your home?: No Can you prepare your own meals?: Yes Can you do your own housework without help?: Yes Can you shop for groceries or clothes without help?: Yes Do you exercise for about 20 minutes 3 or more days a week?: Yes How confident are you that you can control and manage most of your health problems?: Very confident Can you mange your money, credit cards and accounts, pay bills and taxes?: Yes Cognitive Screening Three Word Registration: Apple, Watch, Margi Clock Drawing: Normal Clock - 2 Three Word Recall: All 3 words correct - 3 Total Score (0-5 Points): 5 Pain Assessment Pain Score: 5 - Moderate pain Advance Care Planning Do you have a living will?: Yes Do you have a medical power of insurance attorney?: Yes Who is your medical power of insurance attorney?: son Objective : BP 158/78 Pulse 52 Ht 5' 6 Wt 186 lb SpO2 96% BMI 30.02 kg/m No results found. Physical Exam Vitals reviewed. Constitutional: Appearance: Normal appearance. HENT: Head: Normocephalic and atraumatic. Right Ear: External ear normal. Left Ear: External ear normal. Nose: Nose normal. Eyes: Extraocular Movements: Extraocular movements intact. Conjunctiva/sclera: Conjunctivae normal. Pupils: Pupils are equal, round, and reactive to light. Cardiovascular: Rate and Rhythm: Regular rhythm. Bradycardia present. Heart sounds: No murmur heard. Pulmonary: Breath sounds: Normal breath sounds. Comments: Mild SOB Abdominal: General: Bowel sounds are normal. Palpations: Abdomen is soft. Musculoskeletal: Right lower leg: Edema present. Left lower leg: Edema present. Skin: General: Skin is warm and dry. Coloration: Skin is pale. Neurological: General: No focal deficit present. Mental Status: She is alert and oriented to person, place, and time. Psychiatric: Mood and Affect: Mood normal. Behavior: Behavior normal. Thought Content: Thought content normal. Judgment: Judgment normal. Assessment/Plan : The following health maintenance schedule was reviewed with the patient and provided in printed form in the after visit summary: Health Maintenance Topic Date Due Diabetes: Urine Protein Screening 12/27/2019 Diabetes: Retinopathy Screening 01/28/2020 Medicare Annual Wellness (AWV) 01/16/2024 Influenza Vaccine (1) 03/22/2024 (Originally 10/31/2023) Pneumococcal Vaccine: 65+ Years (1 of 2 - PCV) 01/25/2025 (Originally 10/02/1941) Diabetes: Hemoglobin A1C 02/16/2024 Advance Care Planning Patient agreed to discuss advance care planning at today's wellness visit. We discussed that an advance directive is a legal document that only goes into effect if the patient is incapacitated and unable to speak for himself or herself. This would help healthcare providers to ensure that the patient gets the care that he or she wishes to receive. The goal is to provide a patient with the best possible quality of life. Encouraged patient to obtain a living will and durable power of insurance attorney for healthcare. We discussed telling [place]illard people about their advance directives such as close family members, and requested a copy to scan into the patient's EHR. An advance directive packet was offered to the patient. Assessment/Plan Diagnoses and all orders for this visit: Routine general medical examination at health care facility ACP (advance care planning) Chronic systolic CHF (congestive heart failure), NYHA class 3 ([facility]) - Sample sacubitril-valsartan (Entresto) 24-26 MG tablet; Take 1 tablet by mouth in the morning and1 tablet before bedtime. - Stop Lisinopril (due to adding Entresto) - RTC 6 weeks CKD (chronic kidney disease) stage 4, GFR 15-29 ml/min ([facility]) No orders of the defined types were placed in this encounter. Follow up in about 6 weeks (around 03/08/2024) for F/U med changes. Electronically signed by Oscar Herrmann MD on January 26, 2024 documented in this encounterSalem Memorial District [id number] Telephone encounter Note* Telephone Encounter - Lamar Schroeder NP - 12/13/2023 3:19 PM EDT I returned call to the patient and she informed that she would like to move forward with services from [facility]. Her granddaughter will be contacted by the hospice today regarding next steps. The office will fax information to the hospice today to help establish services. [facility] [id number] Miscellaneous Notes* Telephone Encounter - Lamar Schroeder NP - 12/13/2023 3:19 PM EDT I returned call to the patient and she informed that she would like to move forward with services from [facility]. Her granddaughter will be contacted by the hospice today regarding next steps. The office will fax information to the hospice today to help establish services. * Telephone Encounter - More Hendrix - 12/13/2023 8:17 AM EDT Patient called back and they said they wanted to go ahead with hospice care that they talked about at her last appt with lamar schroeder. documented in this encounterSalem Memorial District [id number] Telephone encounter Note* Telephone Encounter - More Hendrix - 12/13/2023 8:17 AM EDT Patient called back and they said they wanted to go ahead with hospice care that they talked about at her last appt with lamar schroeder. [facility] [id number] History of Present illness Narrative* Lamar Schroeder NP - 12/08/2023 2:00 PM EDT Images from the original note were not included. HPI Hospital Follow-up Additional comments: Pt heart rate was elevated Last edited by Martine Moctezuma MA on 12/08/2023 8:02 AM. Subjective Patient ID: Angelita Harris is a 88 y.o. female who presents for Hospital Follow-up (Pt heart rate was elevated). Pt went to [facility] and was then admitted due to elevated heart rate, pt was to have an echo and her heart rate was elevated and she did have the echo the next day after her heart rate went down Pt was to start eliquis but this was too expensive for her and he was put on glipizide and also metoprolol Pt is having a hard time breathing today Pt states he back is hurting so bad, her feet are also very swollen , she normally keeps them elevated but she is not able to right now Pt would like to know if she should continue the baby aspirin Current Outpatient Medications on File Prior to Visit Medication Sig Dispense Refill glipiZIDE XL (Glucotrol XL) 5 MG 24 hr tablet TAKE 1 TABLET BY MOUTH, USE WITHIN 30 MINUTES OF A MEAL metoprolol tartrate (Lopressor) 100 MG tablet Take 100 mg by mouth in the morning and 100 mg beforebedtime. allopurinol (Zyloprim) 300 MG tablet TAKE 1 TABLET BY MOUTH EVERY DAY 90 tablet 3 amLODIPine (Norvasc) 5 MG tablet TAKE 1 TABLET BY MOUTH EVERY DAY 100 tablet 3 aspirin 81 MG chewable tablet Chew 1 tablet (81 mg) Daily 30 tablet 11 Blood Glucose Monitoring Suppl ([facility] Blood Glucose Meter) w/Device kit 1 Device Daily 1 kit 0 furosemide (Lasix) 20 MG tablet TAKE 1 TABLET BY MOUTH EVERY DAY IN THE MORNING 90 tablet 4 glucose blood ([facility]S Glucose Meter Test Strips) test strip Use as instructed 100 each 3 latanoprost (Xalatan) 0.005 % ophthalmic solution Administer 1 drop into both eyes Daily lisinopril 20 MG tablet Take 1 tablet (20 mg) by mouth Daily 90 tablet 3 predniSONE (Deltasone) 2.5 MG tablet Take 1 tablet (2.5 mg) by mouth Daily 30 tablet 11 True Metrix Blood Glucose Test test strip DIRECTED IN VITRO ONCE A DAY 100 strip 3 No current facility-administered medications on file prior to visit. I have reviewed and reconciled the history and medication list with the patient today. Allergies Allergen Reactions Penicillin G Unknown Social History Tobacco Use Smoking status: Never Smokeless tobacco: Never Vaping Use Vaping status: Never Used Substance Use Topics Alcohol use: Never Comment: Caffeine: yes Family History Problem Relation Name Age of Onset Diabetes Mother Other (htn) Mother Stroke Mother Other (htn) Father Stroke Father Past Medical History: Diagnosis Date Allergic Diabetes mellitus (CMS/HCC) Hypertension (CMS/HCC) History reviewed. No pertinent surgical history. Visit Vitals Smoking Status Never Review of Systems Constitutional: Positive for fever. HENT: Negative. Eyes: Negative. Respiratory: Negative. Cardiovascular: Positive for leg swelling. Negative for chest pain and palpitations. Gastrointestinal: Negative. Musculoskeletal: Positive for gait problem. Skin: Negative. Psychiatric/Behavioral: Negative. Hematological: Negative. Endocrine: Negative. Objective Physical Exam Vitals reviewed. Constitutional: Appearance: Normal appearance. HENT: Head: Normocephalic and atraumatic. Right Ear: External ear normal. Left Ear: External ear normal. Nose: Nose normal. Eyes: Extraocular Movements: Extraocular movements intact. Conjunctiva/sclera: Conjunctivae normal. Pupils: Pupils are equal, round, and reactive to light. Cardiovascular: Rate and Rhythm: Tachycardia present. Pulmonary: Breath sounds: Normal breath sounds. Comments: Mild SOB Abdominal: General: Bowel sounds are normal. Palpations: Abdomen is soft. Musculoskeletal: Right lower leg: Edema present. Left lower leg: Edema present. Skin: General: Skin is warm and dry. Coloration: Skin is pale. Neurological: General: No focal deficit present. Mental Status: She is alert and oriented to person, place, and time. Psychiatric: Mood and Affect: Mood normal. Behavior: Behavior normal. Thought Content: Thought content normal. Judgment: Judgment normal. Assessment/Plan 1. Atrial flutter with rapid ventricular response (CMS/HCC) This pt was hospitalized for atrial flutter with RVR. She was started on metoprolol and this has helped. She will be given a refill today. She reports that she is feeling good on this medication. Shehas been recommended to follow up with cardiology per her hospital paperwork. She refuses this today. She states she does not want anymore heroic measures and has asked for a [facility] paper to be signedtoday. This is signed and scanned into her chart. She is advised that if she changes her mind to call and let us know and the referral can be sent. - metoprolol tartrate (Lopressor) 100 MG tablet; Take 1 tablet (100 mg) by mouth in the morning and1 tablet (100 mg) before bedtime. Dispense: 60 tablet; Refill: 2 2. Type 2 diabetes mellitus with stage 3a chronic kidney disease, without long- term current use of insulin (HCC) (CMS/HCC) The pt's metformin was discontinued while at the hospital. Glipizide is reordered today. - glipiZIDE XL (Glucotrol XL) 5 MG 24 hr tablet; Take 1 tablet (5 mg) by mouth Daily Do not crush, chew, or split. Dispense: 30 tablet; Refill: 2 3. Low left ventricular ejection fraction LVEF is at 20-25% per her Echo. 4. Bilateral lower extremity edema She is encouraged to continue with elevation of the BLE as she tolerates. She refuses compression stockings. Will await repeat labs next week and consider adding a diuretic. 5. Stage 3a chronic kidney disease (HCC) (CMS/HCC) - CBC; Future - CBC 6. Pulmonary hypertension, unspecified (CMS/HCC) No follow-ups on file. documented in this encounterSalem Memorial District [id number] Instructions* Patient Instructions* Lamar Schroeder NP - 12/08/2023 2:00 PM EDT Labs ordered Metoprolol and glipizide re-ordered. documented in this encounterSalem Memorial District [id number] History of Present illness Narrative* TONIE King - 11/24/2023 2:00 PM EDT Images from the original note were not included. HPI discuss lab results Additional comments: Labs were completed and has not heard results yet. Med Refill Additional comments: Furosemide Last edited by Dolores Chavis LPN on 11/24/2023 2:02 PM. Subjective Patient ID: Angelita Harris is a 88 y.o. female who presents for edema. Angelita Erickson is present today for follow up edema. At last o/v her lasix was increased to 40 mg for 7 days. She feels the increase in the water for a week did not make the swelling any better, she feels the swelling is still the same. She has 4+ edema in bilateral legs, she does try to keep them elevated when she sits down. When she wakes up in the morning she does not have much swelling but then as the day goes on swelling increases. Does not have compression stockings. She has been elevating her legs at night which helps a lot. Drinks about two bottles of water a day. States her right lower leg isn't hurting anymore and the redness has improved. Current Outpatient Medications on File Prior to Visit Medication Sig Dispense Refill allopurinol (Zyloprim) 300 MG tablet TAKE 1 TABLET BY MOUTH EVERY DAY 90 tablet 3 amLODIPine (Norvasc) 5 MG tablet TAKE 1 TABLET BY MOUTH EVERY DAY 100 tablet 3 aspirin 81 MG chewable tablet Chew 1 tablet (81 mg) Daily 30 tablet 11 Blood Glucose Monitoring Suppl ([facility]S Blood Glucose Meter) w/Device kit 1 Device Daily 1 kit 0 furosemide (Lasix) 20 MG tablet TAKE 1 TABLET BY MOUTH EVERY DAY IN THE MORNING 90 tablet 4 glucose blood ([facility]S Glucose Meter Test Strips) test strip Use as instructed 100 each 3 latanoprost (Xalatan) 0.005 % ophthalmic solution Administer 1 drop into both eyes Daily lisinopril 20 MG tablet Take 1 tablet (20 mg) by mouth Daily 90 tablet 3 metFORMIN (Glucophage) 1000 MG tablet TAKE 1 TABLET (1,000 MG) BY MOUTH IN THE MORNING. TAKE WITH MEALS. 100 tablet 3 predniSONE (Deltasone) 2.5 MG tablet Take 1 tablet (2.5 mg) by mouth Daily 30 tablet 11 True Metrix Blood Glucose Test test strip DIRECTED IN VITRO ONCE A DAY 100 strip 3 [DISCONTINUED] cefdinir (Omnicef) 300 MG capsule Take 1 capsule (300 mg) by mouth in the morning and 1 capsule (300 mg) before bedtime. Do all this for 7 days. 14 capsule 0 No current facility-administered medications on file prior to visit. I have reviewed and reconciled the history and medication list with the patient today. Allergies Allergen Reactions Penicillin G Unknown Social History Tobacco Use Smoking status: Never Smokeless tobacco: Never Vaping Use Vaping status: Never Used Substance Use Topics Alcohol use: Never Comment: Caffeine: yes Family History Problem Relation Name Age of Onset Diabetes Mother Other (htn) Mother Stroke Mother Other (htn) Father Stroke Father Past Medical History: Diagnosis Date Allergic Diabetes mellitus (CMS/HCC) Hypertension (CMS/HCC) History reviewed. No pertinent surgical history. Visit Vitals BP 138/88 Pulse (!) 141 Resp 16 Ht 5' 6 Wt 185 lb 12.8 oz SpO2 96% BMI 29.99 kg/m Smoking Status Never BSA 1.98 m Review of Systems Constitutional: Negative for chills, fatigue and fever. Respiratory: Negative for cough, shortness of breath and wheezing. Cardiovascular: Positive for leg swelling. Negative for chest pain and palpitations. Gastrointestinal: Negative for abdominal pain, constipation, diarrhea, nausea and vomiting. Skin: Negative for rash. Objective Physical Exam Constitutional: General: She is not in acute distress. Appearance: Normal appearance. She is well-developed. HENT: Head: Normocephalic and atraumatic. Eyes: General: No scleral icterus. Conjunctiva/sclera: Conjunctivae normal. Cardiovascular: Rate and Rhythm: Normal rate and regular rhythm. Heart sounds: Normal heart sounds. No murmur heard. Pulmonary: Effort: Pulmonary effort is normal. No respiratory distress. Breath sounds: Normal breath sounds. No wheezing, rhonchi or rales. Musculoskeletal: Right lower le+ Pitting Edema present. Left lower le+ Pitting Edema present. Comments: Erythema noted right lower anterior leg with wound noted with eschar. See photo. Skin: General: Skin is warm and dry. Neurological: General: No focal deficit present. Mental Status: She is alert and oriented to person, place, and time. Gait: Gait abnormal (Using cane). Psychiatric: Mood and Affect: Mood normal. Behavior: Behavior normal. Assessment/Plan Diagnoses and all orders for this visit: Localized edema Encouraged pt to continue to elevate her legs when possible at home. Take Furosemide 20 mg only. Drinking 40 ounces of water a day, or a little less. CKD (chronic kidney disease) stage 4, GFR 15-29 ml/min ([facility]) Advised pt that her kidney function was significantly worse compared to last year's lab results. Will have patient discontinue the Metformin at this time due to potential negative impact on kidneyfunction. Monitor glucose closely. May need referral to Nephrology if kidney function does not improve. Abnormal TSH TSH improved from previous, but remains mildly elevated. Acquired hypothyroidism (CMS/HCC) Not currently taking medication for this condition. Will continue to monitor. Cellulitis of right lower extremity Per pt, improving. Finish antibiotic as prescribed. Contact office if does not continue to improve Pitting edema - Transthoracic Echo (TTE) Complete; Future Will obtain ECHO for further evaluation at this time r/o CHF as a cause for the swelling and impaired kidney function. Benign essential hypertension (CMS/HCC) - Transthoracic Echo (TTE) Complete; Future BP mildly elevated. Will recheck at follow up. Atherosclerosis of aorta (I70.0) - Transthoracic Echo (TTE) Complete; Future See above. Exam, lab results, and treatment plan reviewed and discussed with Dr. Oscar Herrmann. Follow up in about 2 months (around 01/24/2024) for Medicare Wellness Visit, and in 2 weeks to review results and check symptoms. documented in this encounterSalem Memorial District [id number] History of Present illness Narrative* Oscar Herrmann MD - 11/17/2023 10:30 AM EDT Images from the original note were not included. HPI Med Refill Additional comments: Allopurinol,metformin-- [facility] Pt ? If she can discontinue prednisone now Last edited by Zena Macedo LPN on 11/17/2023 10:20 AM. Subjective Patient ID: Angelita Harris is a 88 y.o. female who presents for Diabetes, Hypertension, foot exam for diabetic shoes, and Med Refill (Allopurinol,metformin-- [facility]Pt ? If she can discontinue prednisone now). Diabetes Mellitus Patient presents for follow up of diabetes. Current symptoms include: none. Patient denies foot ulcerations, hypoglycemia , nausea, polydipsia, polyuria, and visual disturbances. Evaluation to date has included: fasting blood sugar, fasting lipid panel, and hemoglobin A1C. Home sugars: BGs range between 125 and 145 Hypertension Patient is here for follow-up of elevated blood pressure. SBlood pressure is well controlled at home. Cardiac symptoms: none. Patient denies chest pain, claudication, irregular heart beat, near-syncope, orthopnea, palpitations, paroxysmal nocturnal dyspnea, and syncope. Diabetes Pertinent negatives for diabetes include no chest pain and no fatigue. Hypertension Pertinent negatives include no chest pain, palpitations or shortness of breath. Med Refill Pertinent negatives include no chest pain or fatigue. Current Outpatient Medications on File Prior to Visit Medication Sig Dispense Refill allopurinol (Zyloprim) 300 MG tablet TAKE 1 TABLET BY MOUTH EVERY DAY 90 tablet 3 amLODIPine (Norvasc) 5 MG tablet TAKE 1 TABLET BY MOUTH EVERY DAY 100 tablet 3 aspirin 81 MG chewable tablet Chew 1 tablet (81 mg) Daily 30 tablet 11 Blood Glucose Monitoring Suppl ([facility]S Blood Glucose Meter) w/Device kit 1 Device Daily 1 kit 0 furosemide (Lasix) 20 MG tablet TAKE 1 TABLET BY MOUTH EVERY DAY IN THE MORNING 90 tablet 4 latanoprost (Xalatan) 0.005 % ophthalmic solution Administer 1 drop into both eyes Daily lisinopril 20 MG tablet Take 1 tablet (20 mg) by mouth Daily 90 tablet 3 metFORMIN (Glucophage) 1000 MG tablet TAKE 1 TABLET (1,000 MG) BY MOUTH IN THE MORNING. TAKE WITH MEALS. 100 tablet 3 True Metrix Blood Glucose Test test strip DIRECTED IN VITRO ONCE A DAY 100 strip 3 [DISCONTINUED] predniSONE (Deltasone) 5 MG tablet TAKE 2 TABLETS (10 MG) BY MOUTH IN THE MORNING 60tablet 5 glucose blood ([facility]S Glucose Meter Test Strips) test strip Use as instructed 100 each 3 [DISCONTINUED] metFORMIN (Glucophage) 1000 MG tablet Take 1 tablet (1,000 mg) by mouth in the morning. Take with meals. 90 tablet 3 No current facility-administered medications on file prior to visit. I have reviewed and reconciled the history and medication list with the patient today. Allergies Allergen Reactions Penicillin G Unknown Social History Tobacco Use Smoking status: Never Smokeless tobacco: Never Substance Use Topics Alcohol use: Never Comment: Caffeine: yes Family History Problem Relation Name Age of Onset Diabetes Mother Other (htn) Mother Stroke Mother Other (htn) Father Stroke Father Past Medical History: Diagnosis Date Allergic Diabetes mellitus (CMS/HCC) Hypertension (CMS/HCC) History reviewed. No pertinent surgical history. Visit Vitals BP 130/80 Pulse 108 Ht 5' 6 Wt 186 lb SpO2 99% BMI 30.02 kg/m Smoking Status Never BSA 1.98 m Review of Systems Constitutional: Negative for fatigue. Respiratory: Negative for shortness of breath. Cardiovascular: Negative for chest pain and palpitations. Objective Physical Exam Constitutional: General: She is not in acute distress. Appearance: She is not ill-appearing. Cardiovascular: Rate and Rhythm: Normal rate and regular rhythm. Heart sounds: No murmur heard. Pulmonary: Effort: Pulmonary effort is normal. No prolonged expiration or respiratory distress. Breath sounds: Normal breath sounds. No decreased air movement. No wheezing. Musculoskeletal: Right lower le+ Edema present. Left lower le+ Edema present. Legs: Comments: Erythema as noted Neurological: Mental Status: She is alert. Psychiatric: Mood and Affect: Mood normal. Thought Content: Thought content normal. Judgment: Judgment normal. Assessment/Plan Diagnoses and all orders for this visit: Polymyalgia rheumatica (CMS/HCC) - predniSONE (Deltasone) 2.5 MG tablet; Take 1 tablet (2.5 mg) by mouth Daily - (This is a decrease, plan to stop after 1 month. Benign essential hypertension (CMS/HCC) Stage 3a chronic kidney disease (HCC) (CMS/HCC) - Comprehensive metabolic panel; Future - CBC and differential Type 2 diabetes mellitus with stage 3a chronic kidney disease, without long-term current use of insulin (HCC) (CMS/[facility]) - POCT Glycated hemoglobin, total - Lipid panel; Future Abnormal TSH - TSH W/REFLEX TO FT4; Future Cellulitis of right lower extremity - cefdinir (Omnicef) 300 MG capsule; Take 1 capsule (300 mg) by mouth in the morning and 1 capsule (300 mg) before bedtime. Do all this for 7 days. Localized edema - Increase lasix to 40mg X 7 days Follow up in about 1 week (around 11/24/2023) for Recheck, Test/Lab Review. [facility]* Diagnosis Atrial flutter with rapid ventricular response ([facility])- Primary Type 2 diabetes mellitus with stage 3a chronic kidney disease, without long-term current use of insulin (HCC) ([facility]) Low left ventricular ejection fraction Bilateral lower extremity edema Stage 3a chronic kidney disease (HCC) ([facility]) Pulmonary hypertension, unspecified ([facility]) documented in this encounter [facility]Evaluation [facility]* Diagnosis Routine general medical examination at health care facility- Primary Routine general medical examination at a health care facility ACP (advance care planning) Other specified counseling Chronic systolic CHF (congestive heart failure), NYHA class 3 ([facility]) CKD (chronic kidney disease) stage 4, GFR 15-29 ml/min ([facility]/HCC) Chronic kidney disease, Stage IV (severe) documented in this [facility]* Diagnosis Polymyalgia rheumatica ([facility]/HCC)- Primary Polymyalgia rheumatica Benign essential hypertension ([facility]/HCC) Essential hypertension, benign Stage 3a chronic kidney disease (HCC) ([facility]/HCC) Type 2 diabetes mellitus with stage 3a chronic kidney disease, without long-term current use of insulin (HCC) ([facility]/HCC) Abnormal TSH Cellulitis of right lower extremity Localized edema Edema documented in this encounter [facility] HealthcareEvaluation note* Diagnosis Localized edema- Primary Edema CKD (chronic kidney disease) stage 4, GFR 15-29 ml/min ([facility]/HCC) Chronic kidney disease, Stage IV (severe) Abnormal TSH Acquired hypothyroidism ([facility]/HCC) Unspecified hypothyroidism Cellulitis of right lower extremity Pitting edema Edema Benign essential hypertension ([facility]/HCC) Essential hypertension, benign Atherosclerosis of aorta (I70.0) Atherosclerosis of aorta documented in this encounter [facility]Evaluation [facility]* Diagnosis Benign essential hypertension (CMS/HCC)- Primary Essential hypertension, benign Chronic systolic CHF (congestive heart failure), NYHA class 3 (CMS/HCC) documented in this encounter [facility] Summary Purpose Family History No Family History Records FoundNo Family History Records FoundNo Family History Records FoundNo Family History Records Found Advance Directives No Advanced Directives Records FoundDocuments on File Type Date Recorded Patient Gastroenterology Technician Expl anation Advance Directives and Living Will 12/08/2023 1:59 PM health care power of insurance attorney and living will 2023-12-08 Reason for Referral Specialty Diagnoses / Procedures Referred By Contac t Referred To Contact Radiology Diagnoses CKD (chronic kidney disease) stage 4, GFR 15-29 ml/min (CMS/HCC) Pitting edema Benign essential hypertension (CMS/HCC) Atherosclerosis of aorta (CMS/HCC) Procedures Transthoracic Echo (TTE) Complete Claribel Craig PA [address] [place] [address] Referral ID Status Reason Start Date Expiration Date Visits Requested Visits Authorized [id number] Incomplete Perform Procedure 11/24/2023 05/22/2024 1 1 Additional Source Comments INFORMATION SOURCE (unrecogn ized section and content) DATE CREATED AUTHOR 03/19/2018 [facility] DATE CREATED AUTHOR AUTHOR'S ORGANIZ ATION 06/25/2020 [facility] DATE CREATED AUTHOR AUTHOR'S ORGANIZ ATION 07/17/2021 [facility] DATE CREATED AUTHOR AUTHOR'S ORGANIZ ATION 05/12/2024 [facility] EPIC Reason for Visit (unrecogniz ed section and content) Reason Comments Hospital Follow-up Pt heart rate was el evated Reason Comments Medicare Annual Wellness Visit Subsequen t Reason Comments Diabetes Hypertension foot exam for diabetic shoes Med Refill Allopurinol,metformi n-- [facility] ? If she can discontinue prednisone now Reason Comments discuss lab results Labs were completed and has not heard results yet. Med Refill Furosemide Reason Comments Med Refill Reason Comments Diabetes Congestive Heart Failure Care Teams (unrecognized sec tion and content) Lamina Searcher Relationship Specialty Start Date End Date Oscar Herrmann MD [address] [place] [address] PCP - General Internal Medicine 08/18/22 Oscar Herrmann MD [address] [place] [address] PCP - ACO Reach 04/30/23 Lamina Searcher Relationship Specialty Start Date End Date Oscar Herrmann MD [address] [place] [address] PCP - General Internal Medicine 08/18/22 Oscar Herrmann MD [address] [place] [address] PCP - ACO Reach 04/30/23 Lamina Searcher Relationship Specialty Start Date End Date Oscar Herrmann MD [address] [place] [address] PCP - General Internal Medicine 08/18/22 Oscar Herrmann MD [address] [place] [address] PCP - ACO Reach 04/30/23 Lamina Searcher Relationship Specialty Start Date End Date Oscar Herrmann MD [address] [place] [address] PCP - General Internal Medicine 08/18/22 Oscar Herrmann MD [address] [place] [address] PCP - ACO Reach 04/30/23 Lamina Searcher Relationship Specialty Start Date End Date Oscar Herrmann MD [address] [place] [address] PCP - General Internal Medicine 08/18/22 Oscar Herrmann MD [address] [place] [address] PCP - ACO Reach 04/30/23 Lamina Searcher Relationship Specialty Start Date End Date Oscar Herrmann MD [address] [place] [address] PCP - General Internal Medicine 08/18/22 Oscar Herrmann MD [address] [place] [address] PCP - ACO Reach 04/30/23 Lamina Searcher Relationship Specialty Start Date End Date Oscar Herrmann MD [address] [place] [address] PCP - General Internal Medicine 08/18/22 Oscar Herrmann MD [address] [place] [address] PCP - ACO Reach 04/30/23 Lamina Searcher Relationship Specialty Start Date End Date Oscar Herrmann MD [address] [place] [address] PCP - General Internal Medicine 08/18/22 Oscar Herrmann MD [address] [place] [address] PCP - ACO Reach 04/30/23 Lamina Searcher Relationship Specialty Start Date End Date Oscar Herrmann MD [address] [place] [address] PCP - General Internal Medicine 08/18/22 Oscar Herrmann MD [address] [place] [address] PCP - ACO Reach 04/30/23 Lamina Searcher Relationship Specialty Start Date End Date Oscar Herrmann MD [address] [facility] [address] [place] [address] PCP - General Internal Medicine 08/18/22 Oscar Herrmann MD [address] [facility] [address] [place] [address] PCP - ACO Reach 04/30/23 Lamina Searcher Relationship Specialty Start Date End Date Oscar Herrmann MD [address] [facility] [address] [place] [address] PCP - General Internal Medicine 08/18/22 Oscar Herrmann MD [address] [facility] [address] [place] [address] PCP - ACO Reach 04/30/23 FOR RECORDS PERTAINING TO PATIENTS WHO ARE OR HAVE BEEN ENROLLED IN A CHEMICAL DEPENDENCY/SUBSTANCEABUSE PROGRAM, SOME INFORMATION MAY BE OMITTED. This clinical summary was aggregated from multiple sources. Caution should be exercised in using it in the provision of clinical care. This summary normalizes information from multiple sources, and as a consequence, information in this document may materially change the coding, format and clinical context of patient data. In addition, data may be omitted in some cases. CLINICAL DECISIONS SHOULD BE BASED ON THE PRIMARY CLINICAL RECORDS. [employer] [facility]. provides no warranty or guarantee of the accuracy or completeness of information in this document.
== END 2024-05-26 10:08 | disposition home or self-care (01) ==
LOC: LAB 10:07
PROVIDERS: PCP Internal Medicine; Visit Provider Family Medicine
DX: R53.1 Weakness (principal); R41.0 Disorientation, unspecified
CPT/HCPCS: 36415; 83880; 84132